=== PATIENT | male | born 1970 | race Caucasian/White ===

== ENCOUNTER 2019-03-05 10:24 | Emergency (ER) | payer BC ==
[~2019-03-05] VITALS: Ht 175.3 cm; Wt 113.4 kg
[~2019-03-05 10:24] MED LIST: ATOR40TA59 PO; LISI-130 PO; RANI300T3 PO
[2019-03-05] MEDS ORDERED: ONDANSETRON PF 4 MG/2 ML VIAL. IV ONE (11:00)
[2019-03-05] MEDS ORDERED: MORPHINE SULFATE 4 MG/ML VIAL. IV ONE (11:00)
[2019-03-05 11:19] LABS: BASO # 0.1 x10^3/uL (0.0-0.2); BASO % 1 % (0-3); EOS # 0.6 x10^3/uL (0.0-0.7); EOS % 6 % (0-3); HEMATOCRIT 44.4 % (39.0-53.0); HEMOGLOBIN 15.3 g/dL (13.0-17.5); LYMPH # 2.6 x10^3/uL (1.0-4.8); LYMPH % 24 % (24-48); MEAN CORPUSCULAR HEMOGLOBIN 31 pg (25-35); MEAN CORPUSCULAR HGB CONC 34 g/dL (31-37); MEAN CORPUSCULAR VOLUME 91 fL (79-100); MONO # 0.9 x10^3/uL (0.0-1.1); MONO % 8 % (0-9); NEUT # 6.9 x10^3uL (1.8-7.7); NEUT % 62 % (31-73); PLATELET COUNT 265 x10^3/uL (140-400); RED BLOOD COUNT 4.87 x10^6/uL (4.30-5.70); WHITE BLOOD COUNT 11.2 x10^3/uL (4.0-11.0)
[2019-03-05 11:29] LABS: CALCIUM 9.3 mg/dL (8.5-10.1); CREATININE 0.9 mg/dL (0.7-1.3); GFR 90.1
[2019-03-05 11:31] LABS: ALBUMIN 3.5 g/dL (3.4-5.0); TOTAL BILIRUBIN 0.3 mg/dL (0.2-1.0); TOTAL PROTEIN 7.1 g/dL (6.4-8.2)
[2019-03-05 11:38] LABS: POTASSIUM 4.1 mmol/L (3.5-5.1)
[2019-03-05 11:44] LABS: BILIRUBIN,URINE NEGATIVE (NEG); CLARITY,URINE CLEAR; COLOR,URINE YELLOW; NITRITE,URINE NEGATIVE (NEG); PROTEIN,URINE NEGATIVE (NEG-TRACE); UROBILINOGEN,URINE 0.2 mg/dL (0.2 mg/dL)
[2019-03-05 11:45] LABS: BACTERIA,URINE 0 /HPF (0-FEW); RBC,URINE 0 /HPF (0-2); SQUAMOUS EPITHELIAL CELL,UR FEW /LPF; WBC,URINE 0 /HPF (0-4)
--- NOTE | 2019-03-05 11:52 | RAD ---
CHEST AP ONLY History: Right lower chest pain.. Comparison with 07/09/2016. The cardiac silhouette is widened, may be slightly greater than on the prior study. No evidence of pneumothorax. No pleural effusion. No evidence of an infiltrate. Bones appear intact. IMPRESSION: Widening of the cardiac silhouette may be slightly greater, compatible with cardiomegaly or pericardial effusion. No consolidating infiltrate. Electronically signed by: Richard Dawkins MD (03/05/2019 11:49 AM) [facility]
--- NOTE | 2019-03-05 12:04 | PHYS DOC ---
Past Medical History Past Medical History: Hypertension, Other Additional Past Medical Histor: HIATAL HERNIA Past Surgical History: Other Additional Past Surgical Histo: Lypoma removal (shoulder),knee,L SHOULDER,DENTAL Additional Information: 1.5 PPD Alcohol Use: Occasionally Additional Information: PATIENT REPORTS DRINKS ALCOHOL EVERY 2 TO 3 DAYS. Drug Use: None Adult General Chief Complaint Chief Complaint: ABDOMINAL PAIN HPI HPI Patient is a 48 year old known presents with right periumbilical pain described as dull. Pain is been continuous for the past 24 hours with sharp components worse with breathing and coughing. Patient has history of abdominal wall strain ventral hernia. Patient's at work this morning when symptoms worsened. Currently rated moderate to severe. States symptoms are different. No nausea vomiting, fever chills or sweats. No flank pain, urinary frequency urgency hematuria or history of kidney stones. No prior abdominal surgeries. [] Review of Systems Review of Systems ROS as per HPI. All other systems were reviewed and found to be within normal limits, except as documented in this note. Current Medications Current Medications Current Medications Medications (Trade) Dose Ordered Sig/Vickie Start Time Stop Time Status Last Admin Dose Admin Info (CONTRAST GIVEN -- Rx MONITORING) 1 each PRN DAILY PRN 03/05/19 12:30 03/07/19 12:29 Iohexol (Omnipaque 300 Mg/ml) 75 ml 1X ONCE 03/05/19 12:30 03/05/19 12:31 DC 03/05/19 12:30 75 ML Morphine Sulfate (Morphine Sulfate) 4 mg 1X ONCE 03/05/19 11:00 03/05/19 11:01 DC 03/05/19 11:18 4 MG Ondansetron HCl (Zofran) 4 mg 1X ONCE 03/05/19 11:00 03/05/19 11:01 DC 03/05/19 11:18 4 MG Allergies Allergies Allergies Coded Allergies Type Severity Reaction Last Updated Verified No Known Drug Allergies 11/25/14 No Physical Exam Physical Exam Constitutional: Well developed, well nourished, no acute distress, non-toxic appearance. [] HENT: Normocephalic, atraumatic, bilateral external ears normal, oropharynx moist, no oral exudates, nose normal. [] Eyes: PERRLA, EOMI, conjunctiva normal, no discharge. [] Neck: Normal range of motion, no tenderness, supple, no stridor. [] Cardiovascular:Heart rate regular rhythm, no murmur [] Lungs & Thorax: Bilateral breath sounds clear to auscultation [] Abdomen: Bowel sounds normal, soft, obesity, focal right periumbilical without palpable hernia. [] Skin: Warm, dry, no erythema. [] Back: No tenderness. [] Extremities: No tenderness, no cyanosis, no clubbing, ROM intact, no edema. [] Neurologic: Alert and oriented X 3, normal motor function, normal sensory function, no focal deficits noted. [] Psychologic: Affect normal, judgement normal, mood normal. [] Current Patient Data Vital Signs Vital Signs Date Time Temp Pulse Resp B/P (MAP) Pulse Ox O2 Delivery O2 Flow Rate FiO2 03/05/19 12:36 173/78 (109) 03/05/19 12:07 84 24 94 Room Air 03/05/19 10:29 97.9 97.9 Lab Values Laboratory Tests Test 03/05/19 10:54 03/05/19 10:56 White Blood Count 11.2 x10^3/uL (4.0-11.0) H Red Blood Count 4.87 x10^6/uL (4.30-5.70) Hemoglobin 15.3 g/dL (13.0-17.5) Hematocrit 44.4 % (39.0-53.0) Mean Corpuscular Volume 91 fL (79-100) Mean Corpuscular Hemoglobin 31 pg (25-35) Mean Corpuscular Hemoglobin Concent 34 g/dL (31-37) Red Cell Distribution Width 13.0 % (11.5-14.5) Platelet Count 265 x10^3/uL (140-400) Neutrophils (%) (Auto) 62 % (31-73) Lymphocytes (%) (Auto) 24 % (24-48) Monocytes (%) (Auto) 8 % (0-9) Eosinophils (%) (Auto) 6 % (0-3) H Basophils (%) (Auto) 1 % (0-3) Neutrophils # (Auto) 6.9 x10^3uL (1.8-7.7) Lymphocytes # (Auto) 2.6 x10^3/uL (1.0-4.8) Monocytes # (Auto) 0.9 x10^3/uL (0.0-1.1) Eosinophils # (Auto) 0.6 x10^3/uL (0.0-0.7) Basophils # (Auto) 0.1 x10^3/uL (0.0-0.2) Sodium Level 140 mmol/L (136-145) Potassium Level 4.1 mmol/L (3.5-5.1) Chloride Level 103 mmol/L (98-107) Carbon Dioxide Level 27 mmol/L (21-32) Anion Gap 10 (6-14) Blood Urea Nitrogen 13 mg/dL (8-26) Creatinine 0.9 mg/dL (0.7-1.3) Estimated GFR (Cockcroft-Gault) 90.1 BUN/Creatinine Ratio 14 (6-20) Glucose Level 111 mg/dL (70-99) H Calcium Level 9.3 mg/dL (8.5-10.1) Total Bilirubin 0.3 mg/dL (0.2-1.0) Aspartate Amino Transferase (AST) 24 U/L (15-37) Alanine Aminotransferase (ALT) 31 U/L (16-63) Alkaline Phosphatase 77 U/L (46-116) Total Protein 7.1 g/dL (6.4-8.2) Albumin 3.5 g/dL (3.4-5.0) Albumin/Globulin Ratio 1.0 (1.0-1.7) Lipase 176 U/L (73-393) Urine Collection Type Unknown Urine Color Yellow Urine Clarity Clear Urine pH 7.0 Urine Specific Sheldon 1.020 Urine Protein Negative mg/dL (NEG-TRACE) Urine Glucose (UA) Negative mg/dL (NEG) Urine Ketones (Stick) Negative mg/dL (NEG) Urine Blood Negative (NEG) Urine Nitrite Negative (NEG) Urine Bilirubin Negative (NEG) Urine Urobilinogen Dipstick 0.2 mg/dL (0.2 mg/dL) Urine Leukocyte Esterase Negative (NEG) Urine RBC 0 /HPF (0-2) Urine WBC 0 /HPF (0-4) Urine Squamous Epithelial Cells Few /LPF Urine Bacteria 0 /HPF (0-FEW) Laboratory Tests 03/05/19 10:54 Laboratory Tests 03/05/19 10:54 EKG EKG [ekg: Reviewed] Radiology/Procedures Radiology/Procedures [CT abdomen pelvis: No acute findings per radiology] Course & Med Decision Making Course & Med Decision Making Pertinent Labs and Imaging studies reviewed. (See chart for details) [Pain addressed and improved. No acute findings on CT. Packed abdominal muscle wall strain. Recommend continued supportive care of allergies, smoker's cough and PCP follow-up. Return precautions reviewed.] Allan Disclaimer Dragon Disclaimer This electronic medical record was generated, in whole or in part, using a voice recognition dictation system. Departure Departure Impression: Primary Impression: Abdominal wall pain Disposition: HOME, SELF-CARE Condition: GOOD Referrals: IDALIA SAGASTUME MD (PCP) Patient Instructions: Abdominal Pain (Nonspecific) Additional Instructions: You were evaluated in the emergency department for abdominal wall pain. Lab and imaging was performed. Although the exact cause of your symptoms have been determined, your symptoms are related to inflamed lymph nodes abdomen due to recent respiratory tract this or abdominal wall strain from coughing. Please take ibuprofen for pain and hydrocodone as needed for additional relief. Please follow-up with your PCP in one week or reevaluation and to review CT results. Return to the ED if new or worsening symptoms. Scripts Hydrocodone Bit/Acetaminophen (HYDROCODONE-APAP 5-325 ) 1 Tab Tablet 1 TAB PO PRN Q6HRS PRN for PAIN, #10 TAB 0 Refills Prov: TOMMIE RUFFIN DO 03/05/19 TOMMIE RUFFIN DO Mar 05, 2019 12:04
[2019-03-05] MEDS ORDERED: CONTRAST GIVEN. MC PRN (12:30)
[2019-03-05] MEDS ORDERED: IOHEXOL 300 MG/ML 100ML VIAL. IV ONE (12:30)
--- NOTE | 2019-03-05 12:52 | RAD ---
CT ABD PELV W/ IV CONTRST ONLY Indication: Right periumbilical pain. Pain for 24 hours. Exposure: One or more of the following individualized dose reduction techniques were utilized for this examination: 1. Automated exposure control 2. Adjustment of the mA and/or kV according to patient size 3. Use of iterative reconstruction technique. Technique: Intravenous contrast was given. No oral contrast per request. No prior studies for comparison. Lung bases appear clear. Liver is hypodense compatible with steatosis. Liver is mildly enlarged. Spleen is enlarged, 15.5 cm. Pancreas unremarkable. No evidence of adrenal mass. Kidneys demonstrate symmetric enhancement without mass or hydronephrosis. No calcified gallstone. No aortic aneurysm. Small left para-aortic lymph node measures 1 cm short axis. No other significant lymph node enlargement is seen. No significant small bowel distention. Question mild rectal wall thickening but no adjacent stranding in the fat. No evidence of acute colitis. Appendix appears normal. No evidence of ascites or pneumoperitoneum. No evidence of pelvic mass. Urinary bladder appears unremarkable. Mild degenerative changes of the spine. No aggressive bone destruction. IMPRESSION: 1. Mild hepatosplenomegaly. Hepatic steatosis. 2. Solitary mildly enlarged para-aortic lymph node, nonspecific. 3. Mild apparent rectal wall thickening. No stranding in the surrounding fat, however, significance questionable. Correlate clinically. Electronically signed by: Richard Dawkins MD (03/05/2019 12:49 PM) [facility]
[2019-03-05] MEDS ORDERED: HYDR-2761 PO (14:07)
[2019-03-05 14:14] VITALS: BP 153/74
== END 2019-03-05 14:20 | disposition home or self-care (01) ==
LOC: ER 10:24
DX: R10.33 Periumbilical pain (principal); E65 Localized adiposity; F17.200 Nicotine dependence, unspecified, uncomplicated; I10 Essential (primary) hypertension
CPT/HCPCS: 36415; 71045; 74177; 80053; 81001; 83690; 85025; 96374; 96375; 99285; J2270; J2405; Q9967

== ENCOUNTER 2020-06-11 19:48 | Inpatient (IN) | payer BC ==
[~2020-06-11] VITALS: Ht 175.3 cm; Wt 112.4 kg
[~2020-06-11 19:48] MED LIST changes: +HYDR-2761 PO
[2020-06-11] MEDS ORDERED: ASPIRIN 325 MG TABLET PO ONE (20:30)
[2020-06-11] MEDS ORDERED: NITROGLYCERIN SUBLINGUAL 0.4 MG BOTTLE OF 25. SL PRN ×2 (20:30→21:30)
[2020-06-11] MEDS ORDERED: MORPHINE SULFATE 4 MG/ML VIAL. IV/SQ PRN (20:30)
[2020-06-11] MEDS ORDERED: LIDO:MAALOX 1:1 20 ML SINGLE DOSE. SWSW ONE (20:30)
[2020-06-11 20:31] LABS: BASO # 0.1 x10^3/uL (0.0-0.2); BASO % 1 % (0-3); EOS # 0.7 x10^3/uL (0.0-0.7); EOS % 7 % (0-3); HEMATOCRIT 43.8 % (39.0-53.0); HEMOGLOBIN 14.8 g/dL (13.0-17.5); LYMPH # 3.2 x10^3/uL (1.0-4.8); LYMPH % 29 % (24-48); MEAN CORPUSCULAR HEMOGLOBIN 30 pg (25-35); MEAN CORPUSCULAR HGB CONC 34 g/dL (31-37); MEAN CORPUSCULAR VOLUME 90 fL (79-100); MONO # 0.9 x10^3/uL (0.0-1.1); MONO % 9 % (0-9); NEUT # 6.2 x10^3/uL (1.8-7.7); NEUT % 56 % (31-73); PLATELET COUNT 296 x10^3/uL (140-400); RED BLOOD COUNT 4.86 x10^6/uL (4.30-5.70); RED CELL DISTRIBUTION WIDTH 13.7 % (11.5-14.5); WHITE BLOOD COUNT 11.1 x10^3/uL (4.0-11.0)
[2020-06-11 20:42] LABS: CALCIUM 8.8 mg/dL (8.5-10.1); GFR 79.4; POTASSIUM 4.2 mmol/L (3.5-5.1)
[2020-06-11 20:49] LABS: ALBUMIN 3.6 g/dL (3.4-5.0); ALBUMIN/GLOBULIN RATIO 1.2 (1.0-1.7); MAGNESIUM 2.1 mg/dL (1.8-2.4); TOTAL BILIRUBIN 0.2 mg/dL (0.2-1.0); TOTAL PROTEIN 6.6 g/dL (6.4-8.2)
--- NOTE | 2020-06-11 20:54 | PHYS DOC ---
Past Medical History Past Medical History: GERD, Hypertension, Other Additional Past Medical Histor: HIATAL HERNIA (YOUSUF ACOSTA APRN) Past Surgical History: Other Additional Past Surgical Histo: Lypoma removal (shoulder),knee,L SHOULDER,DENTAL (YOUSUF ACOSTA APRN) Smoking Status: Current Every Day Smoker Alcohol Use: Occasionally Drug Use: None (YOUSUF ACOSTA APRN) General Adult EDM: Chief Complaint: CHEST PAIN HPI: HPI: Patient is a 49 year old male with history of hypertension, acid reflux, current smoker who presents to the ED today complaining of 5 out of 10 pressure- like chest pain that began 2 hours prior to coming to the ED. Patient states he thought it was his acid reflux and took some acid reflux medication with no relief. Patient states at some point the pain radiated to his left jaw. Patient denies anything specifically exacerbating or relieving the pain. (YOUSUF ACOSTA APRN) Review of Systems: Review of Systems: Constitutional: Denies fever or chills. [] Eyes: Denies change in visual acuity. [] HENT: Denies nasal congestion or sore throat. [] Respiratory: Denies cough or shortness of breath. [] Cardiovascular: Reports chest pain GI: Denies abdominal pain, nausea, vomiting, bloody stools or diarrhea. [] : Denies dysuria. [] Musculoskeletal: Denies back pain or joint pain. [] Integument: Denies rash. [] Psychiatric: Denies depression or anxiety. [] (YOUSUF ACOSTA APRN) Heart Score: HEART Score for Chest Pain: HEART Score for Chest Pain Response (Comments) Value History Moderately Suspicious 1 ECG Normal 0 Age >45 - < 65 1 Risk Factors 1 or 2 Risk Factors 1 Troponin >1-<3x Normal Limit 1 Total 4 Risk Factors: Risk Factors: DM, Current or recent (<one month) smoker, HTN, HLP, family history of CAD, obesity. Risk Scores: Score 0 - 3: 2.5% MACE over next 6 weeks - Discharge Home Score 4 - 6: 20.3% MACE over next 6 weeks - Admit for Clinical Observation Score 7 - 10: 72.7% MACE over next 6 weeks - Early Invasive Strategies (YOUSUF ACOSTA APRN) Current Medications: Current Medications Medications (Trade) Dose Ordered Sig/Vickie Start Time Stop Time Status Last Admin Dose Admin Aspirin (Jessica Aspirin) 325 mg 1X ONCE 06/11/20 20:30 06/11/20 20:31 DC 06/11/20 20:32 325 MG Morphine Sulfate (Morphine Sulfate) 4 mg PRN Q15MIN PRN 06/11/20 20:30 06/12/20 20:29 Multi-Ingredient Mouthwash/Gargle (Gi Cocktail) 20 ml 1X ONCE 06/11/20 20:30 06/11/20 20:31 DC 06/11/20 20:32 20 ML Nitroglycerin (Nitrostat) 0.4 mg PRN Q5MIN PRN 06/11/20 20:30 06/12/20 20:29 (YOUSUF ACOSTA APRN) Allergies: Allergies: Allergies Coded Allergies Type Severity Reaction Last Updated Verified No Known Drug Allergies 11/25/14 No (YOUSUF ACOSTA CARROTING MACHINE OFFBEARER) Physical Exam: PE: Constitutional: Well developed, well nourished, no acute distress, non-toxic appearance. [] HENT: Normocephalic, atraumatic, bilateral external ears normal, oropharynx moist, no oral exudates, nose normal. [] Eyes: PERRLA, EOMI, conjunctiva normal, no discharge. [] Neck: Normal range of motion, no tenderness, supple, no stridor. [] Cardiovascular:Heart rate regular rhythm, no murmur [] Lungs & Thorax: Bilateral breath sounds clear to auscultation [] Abdomen: Bowel sounds normal, soft, no tenderness, no masses, no pulsatile masses. [] Skin: Warm, dry, no erythema, no rash. [] Back: No tenderness, no CVA tenderness. [] Extremities: No tenderness, no cyanosis, no clubbing, ROM intact, no edema. [] Neurologic: Alert and oriented X 3, normal motor function, normal sensory function, no focal deficits noted. [] Psychologic: Affect normal, judgement normal, mood normal. [] (YOUSUF ACOSTA CARROTING MACHINE OFFBEARER) Current Patient Data: Labs: Laboratory Tests Test 06/11/20 20:20 White Blood Count 11.1 x10^3/uL (4.0-11.0) H Red Blood Count 4.86 x10^6/uL (4.30-5.70) Hemoglobin 14.8 g/dL (13.0-17.5) Hematocrit 43.8 % (39.0-53.0) Mean Corpuscular Volume 90 fL (79-100) Mean Corpuscular Hemoglobin 30 pg (25-35) Mean Corpuscular Hemoglobin Concent 34 g/dL (31-37) Red Cell Distribution Width 13.7 % (11.5-14.5) Platelet Count 296 x10^3/uL (140-400) Neutrophils (%) (Auto) 56 % (31-73) Lymphocytes (%) (Auto) 29 % (24-48) Monocytes (%) (Auto) 9 % (0-9) Eosinophils (%) (Auto) 7 % (0-3) H Basophils (%) (Auto) 1 % (0-3) Neutrophils # (Auto) 6.2 x10^3/uL (1.8-7.7) Lymphocytes # (Auto) 3.2 x10^3/uL (1.0-4.8) Monocytes # (Auto) 0.9 x10^3/uL (0.0-1.1) Eosinophils # (Auto) 0.7 x10^3/uL (0.0-0.7) Basophils # (Auto) 0.1 x10^3/uL (0.0-0.2) Sodium Level 140 mmol/L (136-145) Potassium Level 4.2 mmol/L (3.5-5.1) Chloride Level 103 mmol/L (98-107) Carbon Dioxide Level 28 mmol/L (21-32) Anion Gap 9 (6-14) Blood Urea Nitrogen 16 mg/dL (8-26) Creatinine 1.0 mg/dL (0.7-1.3) Estimated GFR (Cockcroft-Gault) 79.4 BUN/Creatinine Ratio 16 (6-20) Glucose Level 115 mg/dL (70-99) H Calcium Level 8.8 mg/dL (8.5-10.1) Magnesium Level 2.1 mg/dL (1.8-2.4) Total Bilirubin 0.2 mg/dL (0.2-1.0) Aspartate Amino Transferase (AST) 24 U/L (15-37) Alanine Aminotransferase (ALT) 33 U/L (16-63) Alkaline Phosphatase 91 U/L (46-116) Total Protein 6.6 g/dL (6.4-8.2) Albumin 3.6 g/dL (3.4-5.0) Albumin/Globulin Ratio 1.2 (1.0-1.7) Lipase 178 U/L (73-393) Laboratory Tests 06/11/20 20:20 Laboratory Tests 06/11/20 20:20 Vital Signs: Vital Signs Date Time Temp Pulse Resp B/P (MAP) Pulse Ox O2 Delivery O2 Flow Rate FiO2 06/11/20 20:08 98.5 83 20 141/72 (95) 96 Room Air 98.5 (YOUSUF ACOSTA APRN) EKG: EK interpreted by Dr. Richardson sinus rhythm HR 79 no STEMI[] (YOUSUF ACOSTA APRN) Radiology/Procedures: Radiology/Procedures: []PROCEDURE: PORTABLE CHEST 1V Single view chest dated 06/11/2020. Comparison made to 03/05/2019. CLINICAL INDICATION: Chest pain. FINDINGS: Single upright portable exam performed. Heart size is mildly enlarged. Lungs are somewhat hypoinflated but otherwise clear. No consolidation or pleural effusion. There are some prominent linear perihilar markings, unchanged. No pleural effusion or. IMPRESSION: No acute radiographic abnormality. Stable findings compared to 03/05/2019. Electronically signed by: Richard Causey MD (06/11/2020 9:14 PM) [facility] [place] DICTATED and SIGNED BY: RICHARD CAUSEY MD DATE: 06/11/202113 (YOUSUF ACOSTA APRN) Course & Med Decision Making: Course & Med Decision Making Pertinent Labs and Imaging studies reviewed. (See chart for details) This is a 49-year-old male patient presenting to the ED today with substernal chest pain that began 2 hours prior to coming to the ED. EKG is negative. Troponin 0.313, CBC, CMP negative for any acute findings. Spoke with - he requested heparin Lovenox. Lovenox was given to patient. Spoke with Dr. Almazan who accepted patient for admission Talked to patient to consider smoking cessation. (YOUSUF ACOSTA APRN) Dragon Disclaimer: Dragon Disclaimer: This electronic medical record was generated, in whole or in part, using a voice recognition dictation system. (YOUSUF ACOSTA APRN) Departure Departure Impression: Primary Impression: Chest pain Qualified Codes: R07.9 - Chest pain, unspecified Additional Impressions: NSTEMI, initial episode of care Smoking addiction Disposition: ADMITTED INPATIENT Referrals: IDALIA SAGASTUME MD (PCP) Justicifation of Admission Dx: Justifications for Admission: Justification of Admission Dx: Yes [place]: Acute NSTEMI (YOUSUF ACOSTA APRN) Attending Signature Attending Signature I have reviewed the PA/STENCIL PRINTER's note and plan of care. I was available for consultation as needed during the patient's visit in the emergency department. I agree with the clinical impression, plan, and disposition. (RICHARD RICHARDSON DO) YOUSUF ACOSTA APRN Jun 11, 2020 20:54 RICHARD RICHARDSON DO Jun 12, 2020 01:58
[2020-06-11 21:04] LABS: PROTHROMBIN TIME PATIENT 12.1 SEC (11.7-14.0)
[2020-06-11 21:07] LABS: D-DIMER < 0.27 ug/mlFEU (0.00-0.50)
[2020-06-11] MEDS ORDERED: ANTI-COAG MONITOR BY PHARMACY. MC PRN (21:15)
--- NOTE | 2020-06-11 21:17 | RAD ---
Single view chest dated 06/11/2020. Comparison made to 03/05/2019. CLINICAL INDICATION: Chest pain. FINDINGS: Single upright portable exam performed. Heart size is mildly enlarged. Lungs are somewhat hypoinflated but otherwise clear. No consolidation or pleural effusion. There are some prominent linear perihilar markings, unchanged. No pleural effusion or. IMPRESSION: No acute radiographic abnormality. Stable findings compared to 03/05/2019. Electronically signed by: Richard Causey MD (06/11/2020 9:14 PM) JM
[2020-06-11] MEDS ORDERED: ONDANSETRON PF 4 MG/2 ML VIAL. IV PRN (21:30)
[2020-06-11] MEDS ORDERED: MORPHINE SULFATE 4 MG/ML VIAL. IV PRN (21:30)
[2020-06-11 22:30] VITALS: BP 143/79
[2020-06-11] MEDS ORDERED: NICOTINE 14MG PATCH. TD PRN (23:15)
[2020-06-11] MEDS ORDERED: IBUP-1060 PO (23:37)
[2020-06-12] VITALS (7 sets, daily range): BP systolic 124–179; BP diastolic 48–78
[2020-06-12 00:30] LABS: BASO # 0.1 x10^3/uL (0.0-0.2); BASO % 1 % (0-3); EOS # 0.8 x10^3/uL (0.0-0.7); EOS % 7 % (0-3); HEMATOCRIT 42.4 % (39.0-53.0); HEMOGLOBIN 14.6 g/dL (13.0-17.5); LYMPH # 3.6 x10^3/uL (1.0-4.8); LYMPH % 34 % (24-48); MEAN CORPUSCULAR HEMOGLOBIN 31 pg (25-35); MEAN CORPUSCULAR HGB CONC 35 g/dL (31-37); MEAN CORPUSCULAR VOLUME 90 fL (79-100); MONO # 0.7 x10^3/uL (0.0-1.1); MONO % 7 % (0-9); NEUT # 5.3 x10^3/uL (1.8-7.7); NEUT % 51 % (31-73); PLATELET COUNT 271 x10^3/uL (140-400); RED CELL DISTRIBUTION WIDTH 13.5 % (11.5-14.5); WHITE BLOOD COUNT 10.4 x10^3/uL (4.0-11.0)
[2020-06-12 00:45] LABS: ALBUMIN 3.4 g/dL (3.4-5.0); ALBUMIN/GLOBULIN RATIO 1.1 (1.0-1.7); CALCIUM 8.7 mg/dL (8.5-10.1); GFR 79.4; POTASSIUM 4.1 mmol/L (3.5-5.1); TOTAL BILIRUBIN 0.2 mg/dL (0.2-1.0); TOTAL PROTEIN 6.4 g/dL (6.4-8.2)
--- NOTE | 2020-06-12 01:03 | NUR ---
Spoke with Dr Yanez regarding elevated troponin of 6.135. Order received for heparin drip to begin at 0600 and pt to remain NPO. Will continue with plan of care.
[2020-06-12] MEDS ORDERED: HEPARIN for IV BOLUS 10,000 UNIT/10 ML VIAL. IV ONE (06:00)
[2020-06-12] MEDS ORDERED: HEPARIN 25,000UTS/250ML PREMIX 250 ML IV PRN (06:00)
[2020-06-12] MEDS ORDERED: HEPARIN for IV BOLUS 10,000 UNIT/10 ML VIAL. IV PRN (06:00)
--- NOTE | 2020-06-12 07:47 | PDOC1 ---
History and Physical Date of Admission Date of Admission DATE: 06/12/20 TIME: 07:44 Identification/Chief Complaint Chief Complaint Chest pain Source Source: Patient History of Present Illness History of Present Illness Mr Lepe is a 49 year old male with history of hypertension, acid reflux, current smoker who presents to the ED today complaining of 5 out of 10 pressure- like chest pain that began 2 hours prior to coming to the ED. Patient states he thought it was his acid reflux and took some acid reflux medication with no relief. Patient states at some point the pain radiated to his left jaw. Patient denies anything specifically exacerbating or relieving the pain. Chest x-ray with no acute abnormality. EKG normal sinus rhythm rate of 79 bpm. Labs significant for WBC 11.1, Hb 14.8, platelets 296, INR 0.9, d-dimer 0, BNP 47, lipase 178, NA 140, K4.2, BUN 16, CR 1, glucose 115, THS 1.55. Initial troponin 0 0.313, 6-hour troponin 0.135, now 10.098 Past Medical History Cardiovascular: HTN GI: GERD Past Surgical History Past Surgical History: Other ([place] teeth) Family History Family History: Coronary Artery Disease, High Cholestrol, Hypertension Social History Smoke: 1 pack per day ALCOHOL: rare Drugs: None Current Problem List Problem List Problems Medical Problems: (1) NSTEMI, initial episode of care Status: Acute (2) Smoking addiction Status: Acute Current Medications Current Medications Current Medications Aspirin (Jessica Aspirin) 325 mg 1X ONCE PO Last administered on 06/11/20at 20:32; Start 06/11/20 at 20:30; Stop 06/11/20 at 20:31; Status DC Nitroglycerin (Nitrostat) 0.4 mg PRN Q5MIN PRN SL CP RATING > 1/10 Last administered on 06/11/20at 20:55; Start 06/11/20 at 20:30; Stop 06/11/20 at 21:22; Status DC Morphine Sulfate (Morphine Sulfate) 4 mg PRN Q15MIN PRN IV/SQ PAIN GREATER THAN 3/10 Last administered on 06/11/20at 20:56; Start 06/11/20 at 20:30; Stop 06/12/20 at 20:29 Multi-Ingredient Mouthwash/Gargle (Gi Cocktail) 20 ml 1X ONCE SWSW Last administered on 06/11/20at 20:32; Start 06/11/20 at 20:30; Stop 06/11/20 at 20:31; Status DC Enoxaparin Sodium (Lovenox Per Pharmacy Treatment Dosing) 1 each PRN DAILY PRN MC SEE COMMENTS Last administered on 06/12/20at 00:21; Start 06/11/20 at 21:15; Stop 06/12/20 at 01:18; Status DC Enoxaparin Sodium (Lovenox 100mg Syringe) 100 mg Q12HR SQ Last administered on 06/11/20at 21:58; Start 06/11/20 at 21:30; Stop 06/12/20 at 00:18; Status DC Info (Anti-Coagulation Monitoring By Pharmacy) 1 each PRN DAILY PRN MC SEE COMMENTS Last administered on 06/12/20at 00:22; Start 06/11/20 at 21:15 Ondansetron HCl (Zofran) 4 mg PRN Q8HRS PRN IV NAUSEA/VOMITING 1ST CHOICE; Start 06/11/20 at 21:30; Stop 06/12/20 at 21:29 Morphine Sulfate (Morphine Sulfate) 4 mg PRN Q2HR PRN IV SEVERE PAIN 7-10; Start 06/11/20 at 21:30; Stop 06/12/20 at 21:29 Nitroglycerin (Nitrostat) 0.4 mg PRN Q5MIN PRN SL CHEST PAIN; Start 06/11/20 at 21:30; Stop 06/12/20 at 21:29 Nicotine (Nicoderm Cq 14mg) 1 patch PRN DAILY PRN TD SMOKING CESSATION; Start 06/11/20 at 23:15 Enoxaparin Sodium (Lovenox 150mg Syringe) 130 mg Q12H SQ ; Start 06/12/20 at 09:00; Stop 06/12/20 at 01:18; Status DC Heparin Sodium (Porcine) (Heparin Sodium) 2,000 unit 1X ONCE IV Last administered on 06/12/20at 05:34; Start 06/12/20 at 06:00; Stop 06/12/20 at 06:01; Status DC Heparin Sodium/ Dextrose 250 ml @ 0 mls/hr CONT PRN IV PER PROTOCOL Last administered on 06/12/20at 05:31; Start 06/12/20 at 06:00 Heparin Sodium (Porcine) (Heparin Sodium) 3,350 unit PRN Q6HRS PRN IV FOR UFH LEVEL LESS THAN 0.2; Start 06/12/20 at 06:00 Active Scripts Active Zantac (Ranitidine Hcl) 300 Mg Tablet 1 Tab PO QHS Reported Ibuprofen 800 Mg Tablet 800 Mg PO PRN BID PRN Lisinopril 40 Mg Tablet 40 Mg PO DAILY Allergies Allergies: Coded Allergies: No Known Drug Allergies (Unverified , 11/25/14) ROS General: YES: Fatigue, Malaise; No: Chills, Night Sweats, Appetite, Other PSYCHOLOGICAL ROS: No: Anxiety, Behavioral Disorder, Concentration difficultie, Decreased libido, Depression, Disorientation, Hallucinations, Hostility, Irritablity, Memory difficulties, Mood Swings, Obsessive thoughts, Physical abuse, Sexual abuse, Sleep disturbances, Suicidal ideation, Other Eyes: No Blurry vision, No Decreased vision, No Double vision, No Dry eyes, No Excessive tearing, No Eye Pain, No Itchy Eyes, No Loss of vision, No Photophobia, No Scotomata, No Uses contacts, No Uses glasses, No Other HEENT: No: Heacaches, Visual Changes, Hearing change, Nasal congestion, Nasal discharge, Oral lesions, Sinus pain, Sore Throat, Epistaxis, Sneezing, Snoring, Tinnitus, Vertigo, Vocal changes, Other ALLERGY AND IMMUNOLOGY: No: Hives, Insect Bite Sensitivity, Itchy/Watery Eyes, Nasal Congestion, Post Nasal Drip, Seasonal Allergies, Other Hematological and Lymphatic: No: Bleeding Problems, Blood Clots, Blood Transfusions, Brusing, Night Sweats, Pallor, Swollen Lymph Nodes, Other ENDOCRINE: No: Breast Changes, Galactorrhea, Hair Pattern Changes, Hot Flashes, Malaise/lethargy, Mood Swings, Palpitations, Polydipsia/polyuria, Skin Changes, Temperature Intolerance, Unexpected Weight Changes, Other Breast: No New/Changing Breast Lumps, No Nipple changes, No Nipple discharge, No Other Respiratory: YES: Cough; No: Hemoptysis, Orthopnea, Pleuritic Pain, Shortness of breath, SOB with excertion, Sputum Changes, Stridor, Tachypnea, Wheezing, Other Cardiovascular: yes Chest Pain; No Palpitations, No Orthopnea, No Paroxysmal Noc. Dyspnea, No Edema, No Lt Headedness, No Other Gastrointestinal: Yes Nausea; No Vomiting, No Abdominal Pain, No Diarrhea, No Constipation, No Melena, No Hematochezia, No Other Genitourinary: No Dysuria, No Frequency, No Incontinence, No Hematuria, No Retention, No Discharge, No Urgency, No Pain, No Flank Pain, No Other, No , No , No , No , No , No , No Musculoskeletal: No Gait Disturbance, No Joint Pain, No Joint Stiffness, No Joint Swelling, No Muscle Pain, No Muscular Weakness, No Pain In:, No Swelling In:, No Other Neurological: No Behavorial Changes, No Bowel/Bladder ControlChng, No Confusion, No Dizziness, No Gait Disturbance, No Headaches, No Impaired Coord/balance, No Memory Loss, No Numbness/Tingling, No Seizures, No Speech Problems, No Tremors, No Visual Changes, No Weakness, No Other Skin: No Dry Skin, No Eczema, No Hair Changes, No Lumps, No Mole Changes, No Mottling, No Nail Changes, No Pruritus, No Rash, No Skin Lesion Changes, No Other, No Acne Physical Exam General: Alert, Oriented X3, Cooperative, mild distress HEENT: Atraumatic, PERRLA, EOMI, Mucous membr. moist/pink Lungs: Clear to auscultation, Normal air movement Heart: S1S2, RRR, no thrills, no rubs, no gallops, no murmurs Abdomen: Normal bowel sounds, Soft, No tenderness, No hepatosplenomegaly, No masses Rectal Exam: not examined Extremities: No clubbing, No cyanosis, No edema, Normal pulses, No tenderness/swelling Skin: No rashes, No breakdown, No significant lesion Neuro: Normal gait, Normal speech, Strength at 5/5 X4 ext, Normal tone, Sensation intact, Cranial nerves 3-12 NL, Reflexes 2+ Psych/Mental Status: Mental status NL, Mood NL Vitals Vitals Vital Signs Date Time Temp Pulse Resp B/P (MAP) Pulse Ox O2 Delivery O2 Flow Rate FiO2 06/12/20 03:30 97.4 71 18 139/61 (87) 96 Room Air 97.4 Labs Labs Laboratory Tests Test 06/11/20 20:20 06/12/20 00:10 06/12/20 03:10 White Blood Count 11.1 x10^3/uL (4.0-11.0) 10.4 x10^3/uL (4.0-11.0) Red Blood Count 4.86 x10^6/uL (4.30-5.70) 4.70 x10^6/uL (4.30-5.70) Hemoglobin 14.8 g/dL (13.0-17.5) 14.6 g/dL (13.0-17.5) Hematocrit 43.8 % (39.0-53.0) 42.4 % (39.0-53.0) Mean Corpuscular Volume 90 fL (79-100) 90 fL (79-100) Mean Corpuscular Hemoglobin 30 pg (25-35) 31 pg (25-35) Mean Corpuscular Hemoglobin Concent 34 g/dL (31-37) 35 g/dL (31-37) Red Cell Distribution Width 13.7 % (11.5-14.5) 13.5 % (11.5-14.5) Platelet Count 296 x10^3/uL (140-400) 271 x10^3/uL (140-400) Neutrophils (%) (Auto) 56 % (31-73) 51 % (31-73) Lymphocytes (%) (Auto) 29 % (24-48) 34 % (24-48) Monocytes (%) (Auto) 9 % (0-9) 7 % (0-9) Eosinophils (%) (Auto) 7 % (0-3) 7 % (0-3) Basophils (%) (Auto) 1 % (0-3) 1 % (0-3) Neutrophils # (Auto) 6.2 x10^3/uL (1.8-7.7) 5.3 x10^3/uL (1.8-7.7) Lymphocytes # (Auto) 3.2 x10^3/uL (1.0-4.8) 3.6 x10^3/uL (1.0-4.8) Monocytes # (Auto) 0.9 x10^3/uL (0.0-1.1) 0.7 x10^3/uL (0.0-1.1) Eosinophils # (Auto) 0.7 x10^3/uL (0.0-0.7) 0.8 x10^3/uL (0.0-0.7) Basophils # (Auto) 0.1 x10^3/uL (0.0-0.2) 0.1 x10^3/uL (0.0-0.2) Prothrombin Time 12.1 SEC (11.7-14.0) Prothromb Time International Ratio 0.9 (0.8-1.1) D-Dimer (Lina) < 0.27 ug/mlFEU Sodium Level 140 mmol/L (136-145) 140 mmol/L (136-145) Potassium Level 4.2 mmol/L (3.5-5.1) 4.1 mmol/L (3.5-5.1) Chloride Level 103 mmol/L (98-107) 104 mmol/L (98-107) Carbon Dioxide Level 28 mmol/L (21-32) 26 mmol/L (21-32) Anion Gap 9 (6-14) 10 (6-14) Blood Urea Nitrogen 16 mg/dL (8-26) 16 mg/dL (8-26) Creatinine 1.0 mg/dL (0.7-1.3) 1.0 mg/dL (0.7-1.3) Estimated GFR (Cockcroft-Gault) 79.4 79.4 BUN/Creatinine Ratio 16 (6-20) 16 (6-20) Glucose Level 115 mg/dL (70-99) 161 mg/dL (70-99) Calcium Level 8.8 mg/dL (8.5-10.1) 8.7 mg/dL (8.5-10.1) Magnesium Level 2.1 mg/dL (1.8-2.4) Total Bilirubin 0.2 mg/dL (0.2-1.0) 0.2 mg/dL (0.2-1.0) Aspartate Amino Transf (AST/SGOT) 24 U/L (15-37) 41 U/L (15-37) Alanine Aminotransferase (ALT/SGPT) 33 U/L (16-63) 33 U/L (16-63) Alkaline Phosphatase 91 U/L (46-116) 86 U/L (46-116) Troponin I Quantitative 0.313 ng/mL (0.000-0.055) 6.135 ng/mL (0.000-0.055) 10.098 ng/mL (0.000-0.055) NE-Wvh-S-Type Natriuretic Peptide 47 pg/mL (0-124) Total Protein 6.6 g/dL (6.4-8.2) 6.4 g/dL (6.4-8.2) Albumin 3.6 g/dL (3.4-5.0) 3.4 g/dL (3.4-5.0) Albumin/Globulin Ratio 1.2 (1.0-1.7) 1.1 (1.0-1.7) Lipase 178 U/L (73-393) Thyroid Stimulating Hormone (TSH) 1.556 uIU/mL (0.358-3.74) Laboratory Tests Test 06/11/20 20:20 06/12/20 00:10 06/12/20 03:10 White Blood Count 11.1 x10^3/uL (4.0-11.0) 10.4 x10^3/uL (4.0-11.0) Red Blood Count 4.86 x10^6/uL (4.30-5.70) 4.70 x10^6/uL (4.30-5.70) Hemoglobin 14.8 g/dL (13.0-17.5) 14.6 g/dL (13.0-17.5) Hematocrit 43.8 % (39.0-53.0) 42.4 % (39.0-53.0) Mean Corpuscular Volume 90 fL (79-100) 90 fL (79-100) Mean Corpuscular Hemoglobin 30 pg (25-35) 31 pg (25-35) Mean Corpuscular Hemoglobin Concent 34 g/dL (31-37) 35 g/dL (31-37) Red Cell Distribution Width 13.7 % (11.5-14.5) 13.5 % (11.5-14.5) Platelet Count 296 x10^3/uL (140-400) 271 x10^3/uL (140-400) Neutrophils (%) (Auto) 56 % (31-73) 51 % (31-73) Lymphocytes (%) (Auto) 29 % (24-48) 34 % (24-48) Monocytes (%) (Auto) 9 % (0-9) 7 % (0-9) Eosinophils (%) (Auto) 7 % (0-3) 7 % (0-3) Basophils (%) (Auto) 1 % (0-3) 1 % (0-3) Neutrophils # (Auto) 6.2 x10^3/uL (1.8-7.7) 5.3 x10^3/uL (1.8-7.7) Lymphocytes # (Auto) 3.2 x10^3/uL (1.0-4.8) 3.6 x10^3/uL (1.0-4.8) Monocytes # (Auto) 0.9 x10^3/uL (0.0-1.1) 0.7 x10^3/uL (0.0-1.1) Eosinophils # (Auto) 0.7 x10^3/uL (0.0-0.7) 0.8 x10^3/uL (0.0-0.7) Basophils # (Auto) 0.1 x10^3/uL (0.0-0.2) 0.1 x10^3/uL (0.0-0.2) Prothrombin Time 12.1 SEC (11.7-14.0) Prothromb Time International Ratio 0.9 (0.8-1.1) D-Dimer (Lina) < 0.27 ug/mlFEU Sodium Level 140 mmol/L (136-145) 140 mmol/L (136-145) Potassium Level 4.2 mmol/L (3.5-5.1) 4.1 mmol/L (3.5-5.1) Chloride Level 103 mmol/L (98-107) 104 mmol/L (98-107) Carbon Dioxide Level 28 mmol/L (21-32) 26 mmol/L (21-32) Anion Gap 9 (6-14) 10 (6-14) Blood Urea Nitrogen 16 mg/dL (8-26) 16 mg/dL (8-26) Creatinine 1.0 mg/dL (0.7-1.3) 1.0 mg/dL (0.7-1.3) Estimated GFR (Cockcroft-Gault) 79.4 79.4 BUN/Creatinine Ratio 16 (6-20) 16 (6-20) Glucose Level 115 mg/dL (70-99) 161 mg/dL (70-99) Calcium Level 8.8 mg/dL (8.5-10.1) 8.7 mg/dL (8.5-10.1) Magnesium Level 2.1 mg/dL (1.8-2.4) Total Bilirubin 0.2 mg/dL (0.2-1.0) 0.2 mg/dL (0.2-1.0) Aspartate Amino Transf (AST/SGOT) 24 U/L (15-37) 41 U/L (15-37) Alanine Aminotransferase (ALT/SGPT) 33 U/L (16-63) 33 U/L (16-63) Alkaline Phosphatase 91 U/L (46-116) 86 U/L (46-116) Troponin I Quantitative 0.313 ng/mL (0.000-0.055) 6.135 ng/mL (0.000-0.055) 10.098 ng/mL (0.000-0.055) TL-Hpj-Z-Type Natriuretic Peptide 47 pg/mL (0-124) Total Protein 6.6 g/dL (6.4-8.2) 6.4 g/dL (6.4-8.2) Albumin 3.6 g/dL (3.4-5.0) 3.4 g/dL (3.4-5.0) Albumin/Globulin Ratio 1.2 (1.0-1.7) 1.1 (1.0-1.7) Lipase 178 U/L (73-393) Thyroid Stimulating Hormone (TSH) 1.556 uIU/mL (0.358-3.74) Images Images CXR: Single upright portable exam performed. Heart size is mildly enlarged. Lungs are somewhat hypoinflated but otherwise clear. No consolidation or pleural effusion. There are some prominent linear perihilar markings, unchanged. No pleural effusion or. IMPRESSION: No acute radiographic abnormality. Stable findings compared to 03/05/2019. VTE Prophylaxis Ordered VTE Prophylaxis Devices: Yes VTE Pharmacological Prophylaxi: Yes Assessment/Plan Assessment/Plan A/P: NSTEMI - to cardiac geophysical laboratory chief today. Started on lovenox. ASA Hypertension - cont home meds Acid reflux - ppi Current smoker - counseled on cessation Transaminitis - likely fatty liver related FEN - NPO PPX - lovenox FULL CODE Dispo - inpatient for above Justifications for Admission Other Justification RUTH MAYS MD Jun 12, 2020 07:46
--- NOTE | 2020-06-12 08:48 | EKG ---
[facility] [address] [place] [address] Test Date: 2020-06-11 Test Time: 19:58:49 Pat Name: ELIDA BURGESS Department: Room: Gender: M Deposition Operator: : 1970 Requested By: YOUSUF ACOSTA Order Number: [id number] Reading MD: Measurements Intervals [place] Rate: 79 P: 56 MS: 138 QRS: 64 QRSD: 88 T: 18 QT: 362 QTc: 421 Interpretive Statements SINUS RHYTHM INCOMPLETE RIGHT BUNDLE BRANCH BLOCK NO SPECIFIC ECG ABNORMALITIES RI6.02 No previous ECG available for comparison
[2020-06-12] MEDS ORDERED: LIDOCAINE 1% PF 2 ML VIAL. ONE (09:55)
[2020-06-12] MEDS ORDERED: IOHEXOL 300 MG/ML 100ML VIAL. ONE (09:55)
[2020-06-12] MEDS ORDERED: fentaNYL PF VIAL 100 MCG/2 ML VIAL ONE (10:03)
[2020-06-12] MEDS ORDERED: HEPARIN for IV BOLUS 10,000 UNIT/10 ML VIAL. ONE (10:04)
[2020-06-12] MEDS ORDERED: NITROGLYCERIN 200 MCG/2 ML SYRINGE FOR CATH/VASC LAB. ONE (10:04)
[2020-06-12] MEDS ORDERED: MIDAZOLAM HCL/PF 2 MG/2 ML VIAL. ONE ×2 (10:04→10:33)
[2020-06-12] MEDS ORDERED: VERAPAMIL 5 MG/2 ML VIAL. ONE (10:04)
[2020-06-12] MEDS ORDERED: MIDAZOLAM HCL/PF 2 MG/2 ML VIAL. IV ONE (10:15)
[2020-06-12] MEDS ORDERED: HEPARIN for IV BOLUS 10,000 UNIT/10 ML VIAL. IART ONE (10:15)
[2020-06-12] MEDS ORDERED: VERAPAMIL 5 MG/2 ML VIAL. IART ONE (10:15)
[2020-06-12] MEDS ORDERED: NITROGLYCERIN 200 MCG/2 ML SYRINGE FOR CATH/VASC LAB. IART ONE (10:15)
[2020-06-12] MEDS ORDERED: LIDOCAINE 1% PF 2 ML VIAL. INJ ONE (10:15)
[2020-06-12] MEDS ORDERED: IOHEXOL 300 MG/ML 100ML VIAL. IART ONE (10:15)
[2020-06-12] MEDS ORDERED: fentaNYL PF VIAL 100 MCG/2 ML VIAL IV ONE (10:15)
[2020-06-12] MEDS ORDERED: CONTRAST GIVEN. MC PRN (10:30)
[2020-06-12] MEDS ORDERED: BIVALIRUDIN 250 MG VIAL. IV ONE ×2 (10:43→11:00)
[2020-06-12] MEDS ORDERED: TICAGRELOR 90 MG TABLET. PO ONE (11:00)
[2020-06-12] MEDS ORDERED: ASPIRIN CHEWABLE 81 MG TABLET. PO ONE (11:15)
--- NOTE | 2020-06-12 11:18 | PDOC ---
MODERATE SEDATION ASSESSMENT RISKS/ALTERNATIVES Risks/Alternatives Risks and alternatives of this type of sedation and procedure discussed with: RISK/ALTERNATIVES: Patient H & P ON CHART H & P H & P on chart and reviewed for co-morbid conditions and appropriate labs. H&P ON CHART: Yes STATUS PREG STATUS ASSESSED: N/A MEDS/ALLERGIES REVIEWED Meds/Allergies Reviewed Medications and Allergies including time and route of recently administered narcotics and sedatives. MEDS/ALLERGIES REVIEWED: Yes ASA RATING ASA RATING: II AIRWAY ASSESSMENT Airway Assessment Airway patency, oral function limitations, presence of caps, crowns, dentures, partials, and ability to extend neck assessed. AIRWAY ASSESSMENT: Yes MALLAMPATI SCORE MALLAMPATI SCORE: II PRE-SEDATION ASSESSMENT PRE-SEDATION ASSESSMENT: Yes ROSA NEVAREZ MD Jun 12, 2020 11:18
--- NOTE | 2020-06-12 11:25 | CARD ---
MR#: [id number] Date of Study: 06/12/2020 Ordering Physician: ROSA NEVAREZ, Referring Physician: ROSA NEVAREZ, Tech: SAUD BA RTR APPROVED REPORT Technologist: SAUD BA RTR Nurse: SOUMYA BALDWIN RN Procedure(s) performed: 1. Left heart catheterization, selective coronary angiography via right pugh sradial approach 2. Successful PCI/drug-eluting stent placement to the left circumflex artery MODERATE SEDATION TIME: 40 MINUTES FLUORO TIME: 10.3 MIN DOSE: 88.1 GYCM2 CONTRAST: 130CC OMNI 300 INDICATION The indication(s) include : non-STEMI . [facility] Clinical Frailty Scale [facility] Clinical Frailty Scale: Managing Well Heart Failure Heart Failure: No PROCEDURE NARRATIVE After explaining the risks, benefits and alternative options, informed consent was obtained from lora ent. Patient was brought to the cardiac Datastage Developer and right wrist was prepped and draped in the usual fashion after confirming a positive modified Constantino's test. Arterial access was obtained in the righ t radial artery and a 6 Czech sheath was inserted. 6 Czech Christopher catheter was used to perform tony ective angiography of the left and right coronary arteries. LVEDP and transaortic gradients were cristian sured. The following findings were noted: FINDINGS 1. Hemodynamics: Left ventricular end-diastolic pressure of 18 mmHg. No pullback gradient across th e aortic valve. 2. Coronary angiography: a. The left main coronary artery arose from the left sinus of Valsalva, gave rise to the left anteri or descending and left circumflex arteries and did not show any significant stenosis. b. The left anterior descending artery showed 30% stenosis in the midsegment. c. The left circumflex artery was a codominant vessel that showed 90 to 95% stenosis in the midsegme nt. d. The right coronary artery was a codominant vessel arising from the right sinus of Valsalva that d id not show any significant stenosis. INTERVENTION Left main coronary artery was engaged with a 6 Czech XB 3.5 guide catheter and the stenosis in the m idsegment was crossed with a 0.014 inch AKT pro-water guidewire. This was predilated with a 2.5 x 12 mm Euphora balloon following which this was successfully treated with a 2.75 x 12 mm resolute Juliocesar drug-eluting stent. Follow-up angiography showed resolution of the stenosis to 0% with EVERARDO-3 dista l flow. Patient tolerated the procedure well. Hemostasis was achieved using TR band. There were no immediate complications. EVERARDO Flow EVERARDO Flow (Pre-Intervention): EVERARDO-2 EVERARDO Flow (Post-Intervention): EVERARDO-3 Conclusion 1. Severe single-vessel coronary disease involving the codominant left circumflex artery 2. Successful PCI/drug-eluting stent placement to the left circumflex artery Recommendations 1. Aspirin 81 mg daily 2. Ticagrelor 90 mg twice daily 3. Cardiovascular risk factor modification including smoking cessation 4. Cardiac rehabilitation referral Signed by : Rosa Nevarez, Electronically Approved : 06/12/2020 11:24:48
[2020-06-12] MEDS ORDERED: ACETAMINOPHEN 325 MG TABLET. PO PRN (11:30)
[2020-06-12] MEDS ORDERED: 0.9 % SODIUM CHLORIDE 10 ML DISP.SYRIN. IV PRN (11:30)
[2020-06-12] MEDS ORDERED: NITROGLYCERIN SUBLINGUAL 0.4 MG BOTTLE OF 25. SL PRN (11:30)
[2020-06-12] MEDS: METOPROLOL TART IMMED RELEASE 25 MG TABLET. PO SCH ×2 (12:26→20:28)
[2020-06-12] MEDS: NICOTINE 21MG PATCH. TD SCH (12:26)
[2020-06-12] MEDS: LISINOPRIL 20 MG TABLET PO SCH (12:26)
[2020-06-12] MEDS: IV 1/2 NORMAL SALINE 1,000 ML IV SCH (12:27)
--- NOTE | 2020-06-12 13:45 | NUR ---
Patient had a run of 14 Vtach. MICHAEL Jones with cardiology notified. No new orders at this time.
--- NOTE | 2020-06-12 13:58 | NUR ---
SS following for discharge planning. SS reviewed pt chart and discussed with pt RN. Pt is from home with spouse and is currently on room air. Pt had heart cath today. Discharge plan is to home when medically ready. SS will continue to follow for discharge planning.
--- NOTE | 2020-06-12 16:30 | PDOC2 ---
CONSULT Date of Consult Date of Consult DATE: 06/12/20 TIME: 16:20 Reason for Consult Reason for Consult: Chest pain Referring Physician Referring Physician: Dr. Almazan Identification/Chief Complaint Chief Complaint Chest pain Source Source: Chart review, Patient History of Present Illness Reason for Visit: The patient is a 49-year-old male who was admitted to the emergency room last evening after 1 to 2 hours of chest pressure. The patient has a history of gastroesophageal reflux disease and initially thought it was a recurrence of his previous symptoms. However the pain was more intense and did radiate to his left shoulder. Initial EKG showed no acute ischemic changes. Initial troponin was 0.313. Patient however does have a history of hypertension and tobacco abuse. He was admitted and treated with Lovenox. Overnight he ruled in with a peak troponin now of 10.098. He has remained pain-free overnight and is resting comfortably in bed Past Medical History Cardiovascular: HTN GI: GERD Past Surgical History Past Surgical History: Other (Left shoulder surgery. Lipoma removal.) Family History Family History: Coronary Artery Disease, High Cholestrol, Hypertension Social History 1 pack per day ALCOHOL: rare Drugs: None Current Problem List Problem List Problems Medical Problems: (1) NSTEMI, initial episode of care Status: Acute (2) Smoking addiction Status: Acute Current Medications Current Medications Current Medications Aspirin (Jessica Aspirin) 325 mg 1X ONCE PO Last administered on 06/11/20at 20:32; Start 06/11/20 at 20:30; Stop 06/11/20 at 20:31; Status DC Nitroglycerin (Nitrostat) 0.4 mg PRN Q5MIN PRN SL CP RATING > 1/10 Last administered on 06/11/20at 20:55; Start 06/11/20 at 20:30; Stop 06/11/20 at 21:22; Status DC Morphine Sulfate (Morphine Sulfate) 4 mg PRN Q15MIN PRN IV/SQ PAIN GREATER THAN 3/10 Last administered on 06/11/20at 20:56; Start 06/11/20 at 20:30; Stop 06/12/20 at 20:29 Multi-Ingredient Mouthwash/Gargle (Gi Cocktail) 20 ml 1X ONCE SWSW Last administered on 06/11/20at 20:32; Start 06/11/20 at 20:30; Stop 06/11/20 at 20:31; Status DC Enoxaparin Sodium (Lovenox Per Pharmacy Treatment Dosing) 1 each PRN DAILY PRN MC SEE COMMENTS Last administered on 06/12/20at 00:21; Start 06/11/20 at 21:15; Stop 06/12/20 at 01:18; Status DC Enoxaparin Sodium (Lovenox 100mg Syringe) 100 mg Q12HR SQ Last administered on 06/11/20at 21:58; Start 06/11/20 at 21:30; Stop 06/12/20 at 00:18; Status DC Info (Anti-Coagulation Monitoring By Pharmacy) 1 each PRN DAILY PRN MC SEE COMMENTS Last administered on 06/12/20at 00:22; Start 06/11/20 at 21:15; Stop 06/12/20 at 14:58; Status DC Ondansetron HCl (Zofran) 4 mg PRN Q8HRS PRN IV NAUSEA/VOMITING 1ST CHOICE; Start 06/11/20 at 21:30; Stop 06/12/20 at 21:29 Morphine Sulfate (Morphine Sulfate) 4 mg PRN Q2HR PRN IV SEVERE PAIN 7-10; Start 06/11/20 at 21:30; Stop 06/12/20 at 21:29 Nitroglycerin (Nitrostat) 0.4 mg PRN Q5MIN PRN SL CHEST PAIN; Start 06/11/20 at 21:30; Stop 06/12/20 at 21:29 Nicotine (Nicoderm Cq 14mg) 1 patch PRN DAILY PRN TD SMOKING CESSATION; Start 06/11/20 at 23:15 Enoxaparin Sodium (Lovenox 150mg Syringe) 130 mg Q12H SQ ; Start 06/12/20 at 09:00; Stop 06/12/20 at 01:18; Status DC Heparin Sodium (Porcine) (Heparin Sodium) 2,000 unit 1X ONCE IV Last administered on 06/12/20at 05:34; Start 06/12/20 at 06:00; Stop 06/12/20 at 11:22; Status DC Heparin Sodium/ Dextrose 250 ml @ 0 mls/hr CONT PRN IV PER PROTOCOL Last administered on 06/12/20at 05:31; Start 06/12/20 at 06:00; Stop 06/12/20 at 11:21; Status DC Heparin Sodium (Porcine) (Heparin Sodium) 3,350 unit PRN Q6HRS PRN IV FOR UFH LEVEL LESS THAN 0.2; Start 06/12/20 at 06:00; Stop 06/12/20 at 11:21; Status DC Lidocaine HCl (Xylocaine-Mpf 1% 2ml Vial) 2 ml STK-MED ONCE .ROUTE ; Start 06/12/20 at 09:55; Stop 06/12/20 at 09:55; Status DC Iohexol (Omnipaque 300 Mg/ml) 100 ml STK-MED ONCE .ROUTE ; Start 06/12/20 at 09:55; Stop 06/12/20 at 09:55; Status DC Heparin Sodium/ Sodium Chloride 1,000 ml @ As Directed STK-MED ONCE .ROUTE ; Start 06/12/20 at 09:55; Stop 06/12/20 at 09:55; Status DC Fentanyl Citrate (Fentanyl 2ml Vial) 100 mcg STK-MED ONCE .ROUTE ; Start 06/12/20 at 10:03; Stop 06/12/20 at 10:03; Status DC Midazolam HCl (Versed) 2 mg STK-MED ONCE .ROUTE ; Start 06/12/20 at 10:04; Stop 06/12/20 at 10:04; Status DC Heparin Sodium (Porcine) (Heparin Sodium) 10,000 unit STK-MED ONCE .ROUTE ; Start 06/12/20 at 10:04; Stop 06/12/20 at 10:04; Status DC Verapamil HCl (Verapamil) 5 mg STK-MED ONCE .ROUTE ; Start 06/12/20 at 10:04; Stop 06/12/20 at 10:04; Status DC Nitroglycerin (Nitroglycerin) 200 mcg STK-MED ONCE .ROUTE ; Start 06/12/20 at 10 :04; Stop 06/12/20 at 10:05; Status DC Nitroglycerin (Nitroglycerin) 200 mcg 1X ONCE IART Last administered on 06/12/20at 10:15; Start 06/12/20 at 10:15; Stop 06/12/20 at 10:22; Status DC Verapamil HCl (Verapamil) 2.5 mg 1X ONCE IART Last administered on 06/12/20at 10:15; Start 06/12/20 at 10:15; Stop 06/12/20 at 10:22; Status DC Heparin Sodium (Porcine) (Heparin Sodium) 2,500 unit 1X ONCE IART Last administered on 06/12/20at 10:15; Start 06/12/20 at 10:15; Stop 06/12/20 at 10:22; Status DC Heparin Sodium/ Sodium Chloride (HEPARIN for ARTERIAL LINE FLUSH) 1,000 unit 1X ONCE IART Last administered on 06/12/20at 10:15; Start 06/12/20 at 10:15; Stop 06/12/20 at 10:22; Status DC Heparin Sodium/ Sodium Chloride (HEPARIN for ARTERIAL LINE FLUSH) 1,000 unit 1X ONCE IART Last administered on 06/12/20at 10:15; Start 06/12/20 at 10:15; Stop 06/12/20 at 10:22; Status DC Midazolam HCl (Versed) 2 mg 1X ONCE IV Last administered on 06/12/20at 10:15; Start 06/12/20 at 10:15; Stop 06/12/20 at 10:22; Status DC Fentanyl Citrate (Fentanyl 2ml Vial) 100 mcg 1X ONCE IV Last administered on 06/12/20at 10:15; Start 06/12/20 at 10:15; Stop 06/12/20 at 10:22; Status DC Iohexol (Omnipaque 300 Mg/ml) 100 ml 1X ONCE IART Last administered on 06/12/20at 11:02; Start 06/12/20 at 10:15; Stop 06/12/20 at 10:22; Status DC Lidocaine HCl (Xylocaine-Mpf 1% 2ml Vial) 2 ml 1X ONCE INJ Last administered o n 06/12/20at 10:35; Start 06/12/20 at 10:15; Stop 06/12/20 at 10:22; Status DC Info (CONTRAST GIVEN -- Rx MONITORING) 1 each PRN DAILY PRN MC SEE COMMENTS; Start 06/12/20 at 10:30; Stop 06/14/20 at 10:29 Midazolam HCl (Versed) 2 mg STK-MED ONCE .ROUTE ; Start 06/12/20 at 10:33; Stop 06/12/20 at 10:34; Status DC Bivalirudin (Angiomax) 250 mg STK-MED ONCE IV ; Start 06/12/20 at 10:43; Stop 06/12/20 at 10:44; Status DC Bivalirudin (Angiomax) 250 mg 1X ONCE IV Last administered on 06/12/20at 10:58; Start 06/12/20 at 11:00; Stop 06/12/20 at 11:01; Status DC Ticagrelor (Brilinta) 180 mg 1X ONCE PO Last administered on 06/12/20at 11:11; Start 06/12/20 at 11:00; Stop 06/12/20 at 11:05; Status DC Aspirin (Aspirin Chewable) 81 mg DAILYWBKFT PO ; Start 06/13/20 at 08:00 Aspirin (Aspirin Chewable) 81 mg 1X ONCE PO Last administered on 06/12/20at 11:11; Start 06/12/20 at 11:15; Stop 06/12/20 at 11:18; Status DC Sodium Chloride (Normal Saline Flush) 3 ml QSHIFT PRN IV AFTER MEDS AND BLOOD DRAWS; Start 06/12/20 at 11:30 Sodium Chloride 1,000 ml @ 75 mls/hr [id number] IV Last administered on 06/12/20at 12:27; Start 06/12/20 at 11:18 Aspirin (Ecotrin) 81 mg DAILYWBKFT PO ; Start 06/13/20 at 08:00 Ticagrelor (Brilinta) 90 mg BID PO ; Start 06/13/20 at 09:00 Metoprolol Tartrate (Lopressor) 25 mg BID PO Last administered on 06/12/20at 12:26; Start 06/12/20 at 12:00 Atorvastatin Calcium (Lipitor) 40 mg QHS PO ; Start 06/12/20 at 21:00 Acetaminophen (Tylenol) 650 mg PRN Q6HRS PRN PO MILD PAIN / TEMP > 100.3'F; Start 06/12/20 at 11:30 Nitroglycerin (Nitrostat) 0.4 mg PRN Q5MIN PRN SL CHEST PAIN; Start 06/12/20 at 11:30 Lisinopril (Prinivil) 20 mg DAILY PO Last administered on 06/12/20at 12:26; Start 06/12/20 at 12:00 Nicotine (Nicoderm Cq 21mg) 1 patch DAILY TD Last administered on 06/12/20at 12:26; Start 06/12/20 at 12:15 Active Scripts Active Zantac (Ranitidine Hcl) 300 Mg Tablet 1 Tab PO QHS Reported Ibuprofen 800 Mg Tablet 800 Mg PO PRN BID PRN Lisinopril 40 Mg Tablet 40 Mg PO DAILY Allergies Allergies: Coded Allergies: No Known Drug Allergies (Unverified , 11/25/14) ROS Cardiovascular: yes Chest Pain Physical Exam General: No acute distress HEENT: Atraumatic Lungs: Clear to auscultation Heart: Regular rate Abdomen: Normal bowel sounds Vitals VITALS Vital Signs Date Time Temp Pulse Resp B/P (MAP) Pulse Ox O2 Delivery O2 Flow Rate FiO2 06/12/20 15:08 98.1 71 20 130/73 (92) 98 Room Air 98.1 06/12/20 11:17 2.0 Labs Labs Laboratory Tests Test 06/11/20 20:20 06/12/20 00:10 06/12/20 03:10 06/12/20 11:30 White Blood Count 11.1 x10^3/uL (4.0-11.0) 10.4 x10^3/uL (4.0-11.0) Red Blood Count 4.86 x10^6/uL (4.30-5.70) 4.70 x10^6/uL (4.30-5.70) Hemoglobin 14.8 g/dL (13.0-17.5) 14.6 g/dL (13.0-17.5) Hematocrit 43.8 % (39.0-53.0) 42.4 % (39.0-53.0) Mean Corpuscular Volume 90 fL (79-100) 90 fL (79-100) Mean Corpuscular Hemoglobin 30 pg (25-35) 31 pg (25-35) Mean Corpuscular Hemoglobin Concent 34 g/dL (31-37) 35 g/dL (31-37) Red Cell Distribution Width 13.7 % (11.5-14.5) 13.5 % (11.5-14.5) Platelet Count 296 x10^3/uL (140-400) 271 x10^3/uL (140-400) Neutrophils (%) (Auto) 56 % (31-73) 51 % (31-73) Lymphocytes (%) (Auto) 29 % (24-48) 34 % (24-48) Monocytes (%) (Auto) 9 % (0-9) 7 % (0-9) Eosinophils (%) (Auto) 7 % (0-3) 7 % (0-3) Basophils (%) (Auto) 1 % (0-3) 1 % (0-3) Neutrophils # (Auto) 6.2 x10^3/uL (1.8-7.7) 5.3 x10^3/uL (1.8-7.7) Lymphocytes # (Auto) 3.2 x10^3/uL (1.0-4.8) 3.6 x10^3/uL (1.0-4.8) Monocytes # (Auto) 0.9 x10^3/uL (0.0-1.1) 0.7 x10^3/uL (0.0-1.1) Eosinophils # (Auto) 0.7 x10^3/uL (0.0-0.7) 0.8 x10^3/uL (0.0-0.7) Basophils # (Auto) 0.1 x10^3/uL (0.0-0.2) 0.1 x10^3/uL (0.0-0.2) Prothrombin Time 12.1 SEC (11.7-14.0) Prothromb Time International Ratio 0.9 (0.8-1.1) D-Dimer (Lina) < 0.27 ug/mlFEU Sodium Level 140 mmol/L (136-145) 140 mmol/L (136-145) Potassium Level 4.2 mmol/L (3.5-5.1) 4.1 mmol/L (3.5-5.1) Chloride Level 103 mmol/L (98-107) 104 mmol/L (98-107) Carbon Dioxide Level 28 mmol/L (21-32) 26 mmol/L (21-32) Anion Gap 9 (6-14) 10 (6-14) Blood Urea Nitrogen 16 mg/dL (8-26) 16 mg/dL (8-26) Creatinine 1.0 mg/dL (0.7-1.3) 1.0 mg/dL (0.7-1.3) Estimated GFR (Cockcroft-Gault) 79.4 79.4 BUN/Creatinine Ratio 16 (6-20) 16 (6-20) Glucose Level 115 mg/dL (70-99) 161 mg/dL (70-99) Calcium Level 8.8 mg/dL (8.5-10.1) 8.7 mg/dL (8.5-10.1) Magnesium Level 2.1 mg/dL (1.8-2.4) Total Bilirubin 0.2 mg/dL (0.2-1.0) 0.2 mg/dL (0.2-1.0) Aspartate Amino Transf (AST/SGOT) 24 U/L (15-37) 41 U/L (15-37) Alanine Aminotransferase (ALT/SGPT) 33 U/L (16-63) 33 U/L (16-63) Alkaline Phosphatase 91 U/L (46-116) 86 U/L (46-116) Troponin I Quantitative 0.313 ng/mL (0.000-0.055) 6.135 ng/mL (0.000-0.055) 10.098 ng/mL (0.000-0.055) IM-Rpe-E-Type Natriuretic Peptide 47 pg/mL (0-124) Total Protein 6.6 g/dL (6.4-8.2) 6.4 g/dL (6.4-8.2) Albumin 3.6 g/dL (3.4-5.0) 3.4 g/dL (3.4-5.0) Albumin/Globulin Ratio 1.2 (1.0-1.7) 1.1 (1.0-1.7) Lipase 178 U/L (73-393) Thyroid Stimulating Hormone (TSH) 1.556 uIU/mL (0.358-3.74) Heparin Anti-Xa Act, Unfractionated 0.31 IU/mL (0.30-0.70) Laboratory Tests Test 06/11/20 20:20 06/12/20 00:10 06/12/20 03:10 06/12/20 11:30 White Blood Count 11.1 x10^3/uL (4.0-11.0) 10.4 x10^3/uL (4.0-11.0) Red Blood Count 4.86 x10^6/uL (4.30-5.70) 4.70 x10^6/uL (4.30-5.70) Hemoglobin 14.8 g/dL (13.0-17.5) 14.6 g/dL (13.0-17.5) Hematocrit 43.8 % (39.0-53.0) 42.4 % (39.0-53.0) Mean Corpuscular Volume 90 fL (79-100) 90 fL (79-100) Mean Corpuscular Hemoglobin 30 pg (25-35) 31 pg (25-35) Mean Corpuscular Hemoglobin Concent 34 g/dL (31-37) 35 g/dL (31-37) Red Cell Distribution Width 13.7 % (11.5-14.5) 13.5 % (11.5-14.5) Platelet Count 296 x10^3/uL (140-400) 271 x10^3/uL (140-400) Neutrophils (%) (Auto) 56 % (31-73) 51 % (31-73) Lymphocytes (%) (Auto) 29 % (24-48) 34 % (24-48) Monocytes (%) (Auto) 9 % (0-9) 7 % (0-9) Eosinophils (%) (Auto) 7 % (0-3) 7 % (0-3) Basophils (%) (Auto) 1 % (0-3) 1 % (0-3) Neutrophils # (Auto) 6.2 x10^3/uL (1.8-7.7) 5.3 x10^3/uL (1.8-7.7) Lymphocytes # (Auto) 3.2 x10^3/uL (1.0-4.8) 3.6 x10^3/uL (1.0-4.8) Monocytes # (Auto) 0.9 x10^3/uL (0.0-1.1) 0.7 x10^3/uL (0.0-1.1) Eosinophils # (Auto) 0.7 x10^3/uL (0.0-0.7) 0.8 x10^3/uL (0.0-0.7) Basophils # (Auto) 0.1 x10^3/uL (0.0-0.2) 0.1 x10^3/uL (0.0-0.2) Prothrombin Time 12.1 SEC (11.7-14.0) Prothromb Time International Ratio 0.9 (0.8-1.1) D-Dimer (Lina) < 0.27 ug/mlFEU Sodium Level 140 mmol/L (136-145) 140 mmol/L (136-145) Potassium Level 4.2 mmol/L (3.5-5.1) 4.1 mmol/L (3.5-5.1) Chloride Level 103 mmol/L (98-107) 104 mmol/L (98-107) Carbon Dioxide Level 28 mmol/L (21-32) 26 mmol/L (21-32) Anion Gap 9 (6-14) 10 (6-14) Blood Urea Nitrogen 16 mg/dL (8-26) 16 mg/dL (8-26) Creatinine 1.0 mg/dL (0.7-1.3) 1.0 mg/dL (0.7-1.3) Estimated GFR (Cockcroft-Gault) 79.4 79.4 BUN/Creatinine Ratio 16 (6-20) 16 (6-20) Glucose Level 115 mg/dL (70-99) 161 mg/dL (70-99) Calcium Level 8.8 mg/dL (8.5-10.1) 8.7 mg/dL (8.5-10.1) Magnesium Level 2.1 mg/dL (1.8-2.4) Total Bilirubin 0.2 mg/dL (0.2-1.0) 0.2 mg/dL (0.2-1.0) Aspartate Amino Transf (AST/SGOT) 24 U/L (15-37) 41 U/L (15-37) Alanine Aminotransferase (ALT/SGPT) 33 U/L (16-63) 33 U/L (16-63) Alkaline Phosphatase 91 U/L (46-116) 86 U/L (46-116) Troponin I Quantitative 0.313 ng/mL (0.000-0.055) 6.135 ng/mL (0.000-0.055) 10.098 ng/mL (0.000-0.055) TW-Zcl-H-Type Natriuretic Peptide 47 pg/mL (0-124) Total Protein 6.6 g/dL (6.4-8.2) 6.4 g/dL (6.4-8.2) Albumin 3.6 g/dL (3.4-5.0) 3.4 g/dL (3.4-5.0) Albumin/Globulin Ratio 1.2 (1.0-1.7) 1.1 (1.0-1.7) Lipase 178 U/L (73-393) Thyroid Stimulating Hormone (TSH) 1.556 uIU/mL (0.358-3.74) Heparin Anti-Xa Act, Unfractionated 0.31 IU/mL (0.30-0.70) Images Images Chest x-ray. No acute changes. Assessment/Plan Assessment/Plan 1. Non-ST elevated myocardial infarction. Peak troponin of 10.098. Patient has been pain-free overnight and treated with anticoagulation. In this setting I believe cardiac catheterization is appropriate. Risks and benefits were discussed with the patient. The patient has persistent agreed to proceed with cardiac catheterization today. 2. Hypertension. Fair control. We will continue medications and monitor. 3. Tobacco abuse. Counseled on discontinuation of tobacco. 4. Uncertain cholesterol level. Will check a lipid panel. Thank you for allowing us to participate in the care of your patient. JOE CHA MD Jun 12, 2020 16:30
[2020-06-12] MEDS ORDERED: NICOTINE POLACRILEX 2MG GUM PACKAGE of 12. BC PRN (17:45)
[2020-06-12 18:32] LABS: BILIRUBIN,URINE NEGATIVE (NEG); CLARITY,URINE CLOUDY; COLOR,URINE YELLOW; NITRITE,URINE NEGATIVE (NEG); PH,URINE 7.5 (<5.0-8.0); PROTEIN,URINE NEGATIVE (NEG-TRACE); UROBILINOGEN,URINE 0.2 mg/dL (0.2 mg/dL)
[2020-06-12 18:39] LABS: BARBITURATES NEG (NEG); BENZODIAZEPINES POS (NEG); CANNABINOIDS NEG (NEG); COCAINE NEG (NEG); METHADONE NEG (NEG); OPIATES NEG (NEG); PHENCYCLIDINE NEG (NEG)
[2020-06-12 18:40] LABS: AMPHETAMINE/METHAMPHETAMINE NEG (NEG)
[2020-06-12 18:50] LABS: AMORPHOUS SEDIMENT,UR PRESENT /HPF; BACTERIA,URINE 0 /HPF (0-FEW); RBC,URINE 0 /HPF (0-2); WBC,URINE 0 /HPF (0-4)
[2020-06-12] MEDS: ATORVASTATIN CALCIUM 20 MG TABLET PO SCH (20:27)
[2020-06-13 00:08] LABS: HEMOGLOBIN A1C 6.7 % (4.8-5.6)
[2020-06-13] MEDS: IV 1/2 NORMAL SALINE 1,000 ML IV SCH ×2 (00:38→13:58)
[2020-06-13 03:00] VITALS: BP 136/76
[2020-06-13 05:25] LABS: BASO # 0.1 x10^3/uL (0.0-0.2); BASO % 1 % (0-3); EOS # 0.7 x10^3/uL (0.0-0.7); EOS % 7 % (0-3); HEMATOCRIT 47.4 % (39.0-53.0); HEMOGLOBIN 16.2 g/dL (13.0-17.5); LYMPH % 26 % (24-48); MEAN CORPUSCULAR HEMOGLOBIN 31 pg (25-35); MEAN CORPUSCULAR HGB CONC 34 g/dL (31-37); MEAN CORPUSCULAR VOLUME 90 fL (79-100); MONO # 0.8 x10^3/uL (0.0-1.1); MONO % 7 % (0-9); NEUT # 6.7 x10^3/uL (1.8-7.7); NEUT % 60 % (31-73); PLATELET COUNT 320 x10^3/uL (140-400); RED BLOOD COUNT 5.26 x10^6/uL (4.30-5.70); RED CELL DISTRIBUTION WIDTH 13.5 % (11.5-14.5); WHITE BLOOD COUNT 11.3 x10^3/uL (4.0-11.0)
[2020-06-13 05:42] LABS: CALCIUM 8.9 mg/dL (8.5-10.1); GFR 79.4; POTASSIUM 4.1 mmol/L (3.5-5.1)
[2020-06-13 07:00] VITALS: BP 139/82
[2020-06-13] MEDS ORDERED: ASPIRIN CHEWABLE 81 MG TABLET. PO SCH (08:00)
[2020-06-13] MEDS: ASPIRIN ENTERIC COATED 81 MG TABLET.DR. PO SCH (09:00)
[2020-06-13] MEDS: METOPROLOL TART IMMED RELEASE 25 MG TABLET. PO SCH ×2 (09:00→22:03)
[2020-06-13] MEDS: TICAGRELOR 90 MG TABLET. PO SCH ×2 (09:01→22:01)
[2020-06-13] MEDS: NICOTINE 21MG PATCH. TD SCH (09:01)
[2020-06-13] MEDS: LISINOPRIL 20 MG TABLET PO SCH (09:01)
[2020-06-13 11:00] VITALS: BP 136/70
--- NOTE | 2020-06-13 11:51 | NUR ---
SS following up with discharge planning. SS reviewed pt chart and discussed with pt RN. Pt is currently on room air. Pt had heart cath on 06/12/2020. Discharge plan is to home when medically ready. SS will continue to follow for discharge planning.
[2020-06-13] MEDS ORDERED: METO25TA4 PO (12:08)
[2020-06-13] MEDS ORDERED: ASPI-886 PO (12:08)
[2020-06-13] MEDS ORDERED: NITR0.4T24 SL (12:08)
[2020-06-13] MEDS ORDERED: TICA90TA PO (12:08)
[2020-06-13] MEDS ORDERED: ATOR20TA58 PO (12:08)
--- NOTE | 2020-06-13 12:25 | PDOC ---
CARDIO Progress Notes Date and Time Date of Service 06/13/20 Time of Evaluation 1220 Subjective Subjective: No Chest Pain, No shortness of breath, No Palpitations Vitals Vitals Vital Signs Date Time Temp Pulse Resp B/P (MAP) Pulse Ox O2 Delivery O2 Flow Rate FiO2 06/13/20 09:01 70 139/82 06/13/20 08:00 Room Air 2.0 06/13/20 07:00 97.7 16 97 97.7 Weight Weight [ ] Input and Output Intake and Output Intake and Output 06/13/20 07:00 Intake Total 1860 ml Balance 1860 ml Intake Oral 1860 ml # Voids 6 Laboratory Labs Laboratory Tests Test 06/12/20 13:50 06/12/20 18:25 06/13/20 04:00 Hemoglobin A1c 6.7 % (4.8-5.6) Urine Collection Type Unknown Urine Color Yellow Urine Clarity Cloudy Urine pH 7.5 (<5.0-8.0) Urine Specific Foster 1.015 (1.000-1.030) Urine Protein Negative mg/dL (NEG-TRACE) Urine Glucose (UA) Negative mg/dL (NEG) Urine Ketones (Stick) Negative mg/dL (NEG) Urine Blood Negative (NEG) Urine Nitrite Negative (NEG) Urine Bilirubin Negative (NEG) Urine Urobilinogen Dipstick 0.2 mg/dL (0.2 mg/dL) Urine Leukocyte Esterase Negative (NEG) Urine RBC 0 /HPF (0-2) Urine WBC 0 /HPF (0-4) Urine Amorphous Sediment Present /HPF Urine Bacteria 0 /HPF (0-FEW) Urine Opiates Screen Neg (NEG) Urine Methadone Screen Neg (NEG) Urine Barbiturates Neg (NEG) Urine Phencyclidine Screen Neg (NEG) Urine Amphetamine/Methamphetamine Neg (NEG) Urine Benzodiazepines Screen Pos (NEG) Urine Cocaine Screen Neg (NEG) Urine Cannabinoids Screen Neg (NEG) Urine Ethyl Alcohol Neg (NEG) White Blood Count 11.3 x10^3/uL (4.0-11.0) Red Blood Count 5.26 x10^6/uL (4.30-5.70) Hemoglobin 16.2 g/dL (13.0-17.5) Hematocrit 47.4 % (39.0-53.0) Mean Corpuscular Volume 90 fL (79-100) Mean Corpuscular Hemoglobin 31 pg (25-35) Mean Corpuscular Hemoglobin Concent 34 g/dL (31-37) Red Cell Distribution Width 13.5 % (11.5-14.5) Platelet Count 320 x10^3/uL (140-400) Neutrophils (%) (Auto) 60 % (31-73) Lymphocytes (%) (Auto) 26 % (24-48) Monocytes (%) (Auto) 7 % (0-9) Eosinophils (%) (Auto) 7 % (0-3) Basophils (%) (Auto) 1 % (0-3) Neutrophils # (Auto) 6.7 x10^3/uL (1.8-7.7) Lymphocytes # (Auto) 3.0 x10^3/uL (1.0-4.8) Monocytes # (Auto) 0.8 x10^3/uL (0.0-1.1) Eosinophils # (Auto) 0.7 x10^3/uL (0.0-0.7) Basophils # (Auto) 0.1 x10^3/uL (0.0-0.2) Sodium Level 139 mmol/L (136-145) Potassium Level 4.1 mmol/L (3.5-5.1) Chloride Level 104 mmol/L (98-107) Carbon Dioxide Level 27 mmol/L (21-32) Anion Gap 8 (6-14) Blood Urea Nitrogen 15 mg/dL (8-26) Creatinine 1.0 mg/dL (0.7-1.3) Estimated GFR (Cockcroft-Gault) 79.4 Glucose Level 114 mg/dL (70-99) Calcium Level 8.9 mg/dL (8.5-10.1) Triglycerides Level 479 mg/dL (0-150) Cholesterol Level 239 mg/dL (0-200) LDL Cholesterol, Calculated 113 mg/dL (0-100) VLDL Cholesterol, Calculated 96 mg/dL (0-40) Non-HDL Cholesterol Calculated 209 mg/dL (0-129) HDL Cholesterol 30 mg/dL (40-60) Cholesterol/HDL Ratio 8.0 Physical Exam HEENT: Neck Supple W Full Motion Chest: Symmetric LUNGS: Clear to Auscultation Heart: S1S2, RRR, no murmurs Abdomen: Soft N/T Extremities: No Edema, Other (right radial arteriotomy site soft, clean, and dry. No ecchymosis or hematoma present. neurovascular status intact) Neurology: alert, oriented, follow commands Assessment Assessment 1. NSTEMI; Peak troponin of 10.098 2. CAD s/p PCI/DED to the LCx. Echo with preserved LV systolic function 3. Hypertension; controlled 4. Hyperlipidemia; statin 5. Elevated A1C; as per PCP 6. Tobaccoism; discussed/encouraged cessation 7. Arrhythmia; tele noted with brief burst of NSVT. most probably reperfusion related Recommendations Continue secondary prevention measures including DAPT with ASA/Brilinta Risk stratification modification Cardiac rehab referral Will monitor overnight and plan for discharge tomorrow Justicifation of Admission Dx: Justifications for Admission: Justification of Admission Dx: Yes NE: Acute NSTEMI ADONIS CARBALLO APRN Jun 13, 2020 12:25
--- NOTE | 2020-06-13 12:51 | CARD ---
MR#: [id number] Date of Study: 06/13/2020 Ordering Physician: MARCELINO LOMELI, Referring Physician: MARCELINO LOMELI Tech: Swapna Keene PATRICIA APPROVED REPORT EXAM: Two-dimensional and M-mode echocardiogram with Doppler and color Doppler. Other Information Quality : Good INDICATION Non STEMI S/P Cath RISK FACTORS Smoking 2D DIMENSIONS RVDd2.7 (2.9-3.5cm)Left Atrium(2D)3.2 (1.6-4.0cm) IVSd1.1 (0.7-1.1cm)Aortic Root(2D)2.7 (2.0-3.7cm) LVDd4.6 (3.9-5.9cm)LVOT Diameter2.1 (1.8-2.4cm) PWd1.1 (0.7-1.1cm)LVDs2.5 (2.5-4.0cm) FS (%) 30.0 %SV76.5 ml LVEF(%)60.0 (>50%) Aortic Valve AoV Peak Alberto.122.9cm/sAoV VTI20.6cm AO Peak GR.6.0mmHgLVOT Peak Alberto.118.4cm/s AO Mean GR.3mmHgAVA (VMAX)3.50cm2 LUZ MARIA (VTI)3.90cm2 Mitral Valve MV E Axslbppx33.2cm/sMV DECEL [id number] MV A Dqqnapqc81.8cm/sE/A Ratio1.2 Pulmonary Vein S1 Hcrizpuc09.0cm/sD2 Hsdrsnhg23.8cm/s LEFT VENTRICLE The left ventricle is normal size. There is normal left ventricular wall thickness. The left ventricu lar systolic function is normal. The Ejection Fraction is 55-60%. There is normal LV segmental wall m otion. The left ventricular diastolic function and filling is normal for age. RIGHT VENTRICLE The right ventricle is normal size. The right ventricular systolic function is normal. ATRIA The left atrium size is normal. The right atrium size is normal. The interatrial septum is intact wit h no evidence for an atrial septal defect or patent foramen ovale as noted on 2-D or Doppler imaging. AORTIC VALVE The aortic valve is normal in structure and function. Doppler and Color Flow revealed no significant aortic regurgitation. There is no significant aortic valvular stenosis. MITRAL VALVE The mitral valve is normal in structure and function. There is no evidence of mitral valve prolapse. There is no mitral valve stenosis. Doppler and Color Flow revealed no mitral valve regurgitation note d. TRICUSPID VALVE The tricuspid valve is normal in structure and function. Doppler and Color Flow revealed no tricuspid valve regurgitation noted. There is no tricuspid valve stenosis. PULMONIC VALVE The pulmonic valve is not well visualized. Doppler and Color Flow revealed no pulmonic valvular regur gitation. There is no pulmonic valvular stenosis. GREAT VESSELS The aortic root is normal in size. The ascending aorta is normal in size. The IVC is normal in size a nd collapses >50% with inspiration. PERICARDIAL EFFUSION There is no evidence of significant pericardial effusion. Critical Notification Critical Value: No <Conclusion> The left ventricular systolic function is normal. The Ejection Fraction is 55-60%. There is normal LV segmental wall motion. There is no evidence of significant pericardial effusion. Signed by : Rik Davis, Electronically Approved : 06/13/2020 12:50:28
[2020-06-13] MEDS ORDERED: LISI-130 PO (14:58)
[2020-06-13 15:00] VITALS: BP 134/79
[2020-06-13 19:22] VITALS: BP 122/98
[2020-06-13] MEDS: ATORVASTATIN CALCIUM 20 MG TABLET PO SCH (22:04)
[2020-06-13 23:15] VITALS: BP 156/74
[2020-06-14] MEDS: IV 1/2 NORMAL SALINE 1,000 ML IV SCH (03:18)
[2020-06-14 03:30] VITALS: BP 131/75
[2020-06-14 07:00] VITALS: BP 138/69
[2020-06-14] MEDS: NICOTINE 21MG PATCH. TD SCH (08:41)
[2020-06-14] MEDS: METOPROLOL TART IMMED RELEASE 25 MG TABLET. PO SCH (08:42)
[2020-06-14] MEDS: TICAGRELOR 90 MG TABLET. PO SCH (08:42)
[2020-06-14] MEDS: ASPIRIN ENTERIC COATED 81 MG TABLET.DR. PO SCH (08:42)
[2020-06-14] MEDS: LISINOPRIL 20 MG TABLET PO SCH (08:43)
--- NOTE | 2020-06-14 10:58 | PDOC ---
CARDIO Progress Notes Date and Time Date of Service 06/14/20 Time of Evaluation 1045 Subjective Subjective: No Chest Pain, No shortness of breath, No Palpitations Vitals Vitals Vital Signs Date Time Temp Pulse Resp B/P (MAP) Pulse Ox O2 Delivery O2 Flow Rate FiO2 06/14/20 08:43 76 131/75 06/14/20 08:00 Room Air 06/14/20 07:00 97.8 18 97 97.8 06/13/20 08:00 2.0 Weight Weight [ ] Input and Output Intake and Output Intake and Output 06/14/20 07:00 Intake Total 700 ml Output Total 1 ml Balance 699 ml Intake Oral 700 ml Output Urine Total 1 ml # Voids 3 Physical Exam HEENT: Neck Supple W Full Motion Chest: Symmetric LUNGS: Clear to Auscultation Heart: S1S2, RRR, no murmurs Abdomen: Soft N/T Extremities: No Edema, Other (right radial arteriotomy site soft, clean, and dry. No ecchymosis or hematoma present. neurovascular status intact) Neurology: alert, oriented, follow commands Assessment Assessment 1. NSTEMI; Peak troponin of 10.098 2. CAD s/p PCI/DED to the LCx. Echo with preserved LV systolic function 3. Hypertension; controlled 4. Hyperlipidemia; statin 5. Elevated A1C; as per PCP 6. Tobaccoism; discussed/encouraged cessation 7. Arrhythmia; tele noted with brief burst of NSVT. most probably reperfusion related . None further overnight. Rhythm has been stable. Recommendations Continue secondary prevention measures including DAPT with ASA/Brilinta Risk stratification modification Cardiac rehab referral Okay to discharge Follow up in our office with Dr. Yanez as scheduled. Justicifation of Admission Dx: Justifications for Admission: Justification of Admission Dx: Yes AR: Acute NSTEMI ADONIS CARBALLO APRN Jun 14, 2020 10:58
[2020-06-14 11:00] VITALS: BP 125/77
--- NOTE | 2020-06-14 11:42 | PDOC ---
[employer] PROGRESS NOTE Date of Service DOS: DATE: 06/14/20 TIME: 11:42 Chief Complaint Chief Complaint Chest pain History of Present Illness History of Present Illness 06/14/2020 Pt seen and examined. Discussed case with RN and CM. Discussed PCI and echo results with pt and significant other in room. Vitals/I&O Vitals/I&O: Vital Signs Date Time Temp Pulse Resp B/P (MAP) Pulse Ox O2 Delivery O2 Flow Rate FiO2 06/14/20 08:43 76 131/75 06/14/20 08:00 Room Air 06/14/20 07:00 97.8 18 97 97.8 06/13/20 08:00 2.0 I & O 06/13/20 06/13/20 06/14/20 15:00 23:00 07:00 Intake Total 250 ml 450 ml Output Total 1 ml Balance 250 ml 449 ml Physical Exam General: Alert, Oriented X3, Cooperative, No acute distress Heart: Regular rate, Normal S1, Normal S2 Lungs: Clear Abdomen: Normal bowel sounds Extremities: No clubbing, No cyanosis, No edema, Normal pulses, No tenderness/swelling Skin: No rashes, No breakdown, No significant lesion Review of Systems Review of Systems: no chest pain. no SOB. Assessment and Plan Assessmemt and Plan Problems Medical Problems: (1) NSTEMI, initial episode of care Status: Acute (2) Smoking addiction Status: Acute Assessment: NSTEMI CAD Hx HTN. Plan: Continue home meds. Continue Beta calvin, arnulfo inhibitor, statin, aspirin, and ticagrelor. Current smoker, discussed cessation benefits. Discussed benefits of etoh cessation. Cardiac diet. Full code. Comment Review of Relevant I have reviewed the following items janes (where applicable) has been applied. Justifications for Admission Other Justification DWIGHT DOSHI III DO Jun 14, 2020 11:42
--- NOTE | 2020-06-14 12:55 | NUR ---
Discharge Note: ELIDA BURGESS Discharge instructions and discharge home medications reviewed with Patient and a copy given. All questions have been answered and understanding verbalized. Scripts sent into pharmacy on 06/13. Pt and spouse verbalized understanding of new medications and [facility].
--- NOTE | 2020-06-18 14:01 | DS ---
DATE OF DISCHARGE: 06/14/2020 ADMISSION DIAGNOSIS: Chest pain. DISCHARGE DIAGNOSIS: Status post cardiac catheterization with stents. HOSPITAL COURSE: The patient is a pleasant middle-aged male, who presented with chest pain. He was taken to the qc lab technician and got a stent to the left circ. Over the next few days, he returned to his baseline. We discharged to home. DISPOSITION: Home. ACTIVITY: As tolerated. DIET: Low sodium. MEDICATIONS: Please see the MRAD. TOTAL TIME: 34 minutes. DWIGHT DOSHI DO DR: JOSEPHINE/ree JOB#: [id number] / [id number]
--- NOTE | 2020-06-18 14:11 | DS ---
DATE OF DISCHARGE: 06/14/2020 ADMISSION DIAGNOSIS: Chest pain. DISCHARGE DIAGNOSES: Resolving chest pain with . DICTATION ENDS HERE DWIGHT DOSHI DO DR: JOSEPHINE/ree JOB#: [id number] / [id number]
== END 2020-06-14 14:00 | disposition home or self-care (01) | DRG 247 ==
LOC: ER 19:48 → 2 SOUTH 21:45
PROVIDERS: ADMIT Internal Medicine; ATTEND Internal Medicine
PROC: 027034Z Dilation of Coronary Artery, One Artery with Drug-eluting Intraluminal Device, Percutaneous Approach (ICD-10-PCS; principal; 2020-06-12)
PROC: 4A023N7 Measurement of Cardiac Sampling and Pressure, Left Heart, Percutaneous Approach (ICD-10-PCS; 2020-06-12)
PROC: B2111ZZ Fluoroscopy of Multiple Coronary Arteries using Low Osmolar Contrast (ICD-10-PCS; 2020-06-12)
DX: I21.4 Non-ST elevation (NSTEMI) myocardial infarction (principal); I47.2 Ventricular tachycardia; I10 Essential (primary) hypertension; E78.5 Hyperlipidemia, unspecified; F17.210 Nicotine dependence, cigarettes, uncomplicated; I25.10 Atherosclerotic heart disease of native coronary artery without angina pectoris; K21.9 Gastro-esophageal reflux disease without esophagitis; K76.0 Fatty (change of) liver, not elsewhere classified; Z82.49 Family history of ischemic heart disease and other diseases of the circulatory system; Z98.61 Coronary angioplasty status; Z79.899 Other long term (current) drug therapy; Z71.6 Tobacco abuse counseling
CPT/HCPCS: 36415; 71045; 80048; 80053; 80061; 80307; 81001; 83036; 83690; 83735; 83880; 84443; 84484; 85025; 85379; 85520; 85610; 92928; 93005; 93306; 93458; 96372; 96374; 99152; 99153; 99285; 99406; C1725; C1769; C1874; C1887; C1892; J0583; J1644; J1650; J2250; J2270; J3010; J3490; Q9967; G0378

== ENCOUNTER 2021-03-06 14:39 | Emergency (ER) | payer SELFPAY ==
[~2021-03-06] VITALS: Ht 175.3 cm; Wt 110.0 kg
[~2021-03-06 14:39] MED LIST changes: +ASPI-886 PO; +ATOR20TA58 PO; +IBUP-1060 PO; +METO25TA4 PO; +NITR0.4T24 SL; +TICA90TA PO
[2021-03-06] MEDS ORDERED: ASPIRIN CHEWABLE 81 MG TABLET. PO ONE (15:15)
[2021-03-06 15:18] LABS: BASO # 0.1 x10^3/uL (0.0-0.2); BASO % 0 % (0-3); EOS # 0.6 x10^3/uL (0.0-0.7); EOS % 5 % (0-3); HEMATOCRIT 44.3 % (39.0-53.0); HEMOGLOBIN 15.2 g/dL (13.0-17.5); LYMPH # 2.4 x10^3/uL (1.0-4.8); LYMPH % 20 % (24-48); MEAN CORPUSCULAR HEMOGLOBIN 31 pg (25-35); MEAN CORPUSCULAR HGB CONC 34 g/dL (31-37); MEAN CORPUSCULAR VOLUME 90 fL (79-100); MONO # 0.6 x10^3/uL (0.0-1.1); MONO % 5 % (0-9); NEUT # 8.3 x10^3/uL (1.8-7.7); NEUT % 70 % (31-73); PLATELET COUNT 284 x10^3/uL (140-400); RED BLOOD COUNT 4.93 x10^6/uL (4.30-5.70); RED CELL DISTRIBUTION WIDTH 13.1 % (11.5-14.5); WHITE BLOOD COUNT 11.9 x10^3/uL (4.0-11.0)
--- NOTE | 2021-03-06 15:23 | ED.ADGEN ---
Past Medical History Past Medical History: GERD, Hypertension, ND, Other Additional Past Medical Histor: HIATAL HERNIA Past Surgical History: Other Additional Past Surgical Histo: Lypoma removal (shoulder),knee,L SHOULDER,DENTAL, one stent Smoking Status: Current Every Day Smoker Alcohol Use: Occasionally Drug Use: None General Adult EDM: Chief Complaint: CHEST PAIN HPI: HPI: Patient is a 50 year old male coming in for chest pain he describes as pre ssure-like with a small area distal left to his sternum that it feels sharp. Patient was at work walking around the pain started. Denies any recent stressors, heavy lifting or injuries. Patient states that the pain at maximum was 4 out of 10 and is minimal now. Patient took 2 of his nitroglycerin this afternoon. Patient is a history significant for an ND status post 1 stent 9 months ago. Patient states he has been consistent with his anticoagulant use. No other associated symptoms. Review of Systems: Review of Systems: All other systems within normal limits except for as noted in the HPI Current Medications: Current Medications Medications (Trade) Dose Ordered Sig/Vickie Start Time Stop Time Status Last Admin Dose Admin Aspirin (Aspirin Chewable) 324 mg 1X ONCE 03/06/21 15:15 03/06/21 15:16 DC 03/06/21 15:37 324 MG Allergies: Allergies: Allergies Coded Allergies Type Severity Reaction Last Updated Verified No Known Drug Allergies 11/25/14 No Physical Exam: PE: Constitutional: Well developed, well nourished, no acute distress, non-toxic appearance. [] HENT: Normocephalic, atraumatic, bilateral external ears normal, nose normal. [] Eyes: PERRLA, conjunctiva normal, no discharge. [] Neck: No rigidity, supple, no stridor. [] Cardiovascular: Regular rate and rhythm, brisk cap refill, symmetric radial pulses, no residual chest pain on palpation [] Lungs & Thorax: Non labored symmetric respirations, no tachypnea or respiratory distress [] Abdomen: Soft, nondistended. Skin: Warm, dry, no erythema, no rash. [] Back: Unremarkable Extremities: No deformities, range of motion grossly intact, no lower extremity edema [] Neurologic: Alert and oriented X 3, no focal deficits noted. [] Psychologic: Affect normal, judgement normal, mood normal. [] Current Patient Data: Labs: Laboratory Tests Test 03/06/21 14:15 03/06/21 15:32 03/06/21 16:50 White Blood Count 11.9 x10^3/uL (4.0-11.0) H Red Blood Count 4.93 x10^6/uL (4.30-5.70) Hemoglobin 15.2 g/dL (13.0-17.5) Hematocrit 44.3 % (39.0-53.0) Mean Corpuscular Volume 90 fL (79-100) Mean Corpuscular Hemoglobin 31 pg (25-35) Mean Corpuscular Hemoglobin Concent 34 g/dL (31-37) Red Cell Distribution Width 13.1 % (11.5-14.5) Platelet Count 284 x10^3/uL (140-400) Neutrophils (%) (Auto) 70 % (31-73) Lymphocytes (%) (Auto) 20 % (24-48) L Monocytes (%) (Auto) 5 % (0-9) Eosinophils (%) (Auto) 5 % (0-3) H Basophils (%) (Auto) 0 % (0-3) Neutrophils # (Auto) 8.3 x10^3/uL (1.8-7.7) H Lymphocytes # (Auto) 2.4 x10^3/uL (1.0-4.8) Monocytes # (Auto) 0.6 x10^3/uL (0.0-1.1) Eosinophils # (Auto) 0.6 x10^3/uL (0.0-0.7) Basophils # (Auto) 0.1 x10^3/uL (0.0-0.2) Sodium Level 142 mmol/L (136-145) Potassium Level 3.9 mmol/L (3.5-5.1) Chloride Level 106 mmol/L (98-107) Carbon Dioxide Level 27 mmol/L (21-32) Anion Gap 9 (6-14) Blood Urea Nitrogen 16 mg/dL (8-26) Creatinine 1.0 mg/dL (0.7-1.3) Estimated GFR (Cockcroft-Gault) 79.1 BUN/Creatinine Ratio 16 (6-20) Glucose Level 121 mg/dL (70-99) H Calcium Level 8.9 mg/dL (8.5-10.1) Phosphorus Level 4.6 mg/dL (2.6-4.7) Magnesium Level 2.0 mg/dL (1.8-2.4) Total Bilirubin 0.4 mg/dL (0.2-1.0) Aspartate Amino Transferase (AST) 21 U/L (15-37) Alanine Aminotransferase (ALT) 25 U/L (16-63) Alkaline Phosphatase 97 U/L (46-116) Troponin I Quantitative < 0.017 ng/mL (0.000-0.055) < 0.017 ng/mL (0.000-0.055) PI-Umf-I-Type Natriuretic Peptide 58 pg/mL (0-124) Total Protein 7.4 g/dL (6.4-8.2) Albumin 3.8 g/dL (3.4-5.0) Albumin/Globulin Ratio 1.1 (1.0-1.7) Lipase 155 U/L (73-393) Urine Collection Type Void Urine Color Yellow Urine Clarity Clear Urine pH 6.0 (<5.0-8.0) Urine Specific [place] 1.020 (1.000-1.030) Urine Protein Negative mg/dL (NEG-TRACE) Urine Glucose (UA) Negative mg/dL (NEG) Urine Ketones (Stick) Negative mg/dL (NEG) Urine Blood Negative (NEG) Urine Nitrite Negative (NEG) Urine Bilirubin Negative (NEG) Urine Urobilinogen Dipstick 0.2 mg/dL (0.2 mg/dL) Urine Leukocyte Esterase Negative (NEG) Urine RBC 0 /HPF (0-2) Urine WBC Rare /HPF (0-4) Urine Squamous Epithelial Cells Few /LPF Urine Amorphous Sediment Present /HPF Urine Bacteria Few /HPF (0-FEW) Urine Hyaline Casts Occasional /HPF Urine Mucus Mod /LPF Urine Opiates Screen Neg (NEG) Urine Methadone Screen Neg (NEG) Urine Barbiturates Neg (NEG) Urine Phencyclidine Screen Neg (NEG) Urine Amphetamine/Methamphetamine Neg (NEG) Urine Benzodiazepines Screen Neg (NEG) Urine Cocaine Screen Neg (NEG) Urine Cannabinoids Screen Neg (NEG) Urine Ethyl Alcohol Neg (NEG) Laboratory Tests 03/06/21 14:15 Laboratory Tests 03/06/21 14:15 Vital Signs: Vital Signs Date Time Temp Pulse Resp B/P (MAP) Pulse Ox O2 Delivery O2 Flow Rate FiO2 03/06/21 14:45 98.8 80 18 138/66 (90) 95 Room Air 98.8 EKG: EKG: Sinus rhythm with an incomplete right bundle branch block. Heart rate 74 bpm, normal axis, no ST elevation or depression, no ectopy. [] Heart Score: C/O Chest Pain: Yes HEART Score for Chest Pain: HEART Score for Chest Pain Response (Comments) Value History Moderately Suspicious 1 ECG Nonspecific Repolarizatio 1 Age >45 - < 65 1 Risk Factors >3 Risk Factors or Hx CAD 2 Total 5 Risk Factors: Risk Factors: DM, Current or recent (<one month) smoker, HTN, HLP, family history of CAD, obesity. Risk Scores: Score 0 - 3: 2.5% MACE over next 6 weeks - Discharge Home Score 4 - 6: 20.3% MACE over next 6 weeks - Admit for Clinical Observation Score 7 - 10: 72.7% MACE over next 6 weeks - Early Invasive Strategies Radiology/Procedures: Radiology/Procedures: [facility] [address] [place] [address] IMAGING REPORT Signed PATIENT: ELIDA BURGESS ACCOUNT: [id number] : 1970 LOCATION: ER AGE: 50 SEX: M EXAM STATUS: REG ER ORD. PHYSICIAN: QUETA BRANDON MD REASON: chest pain PROCEDURE: CHEST AP ONLY EXAM: XR CHEST 1V 03/06/2021 3:14 PM CLINICAL INDICATION: Chest pain COMPARISON: Chest radiograph 06/11/2020 TECHNIQUE: AP upright view of the chest FINDINGS: The heart is mildly enlarged, unchanged. Lungs are well-expanded and clear. No consolidation, pleural effusion, or pneumothorax. Pulmonary vascularity is normal. The thoracic skeleton is intact. IMPRESSION: No acute cardiopulmonary abnormality. Electronically signed by: Queta Lindsay MD (03/06/2021 3:40 PM) [id number] DICTATED and SIGNED BY: QUETA LINDSAY MD DATE: 03/06/21 [id number] [] Course & Med Decision Making: Course & Med Decision Making Pertinent Labs and Imaging studies reviewed. (See chart for details) Pain resolved and troponin negative at 48 hours past symptoms. Discussed admission for observation for chest pain. Patient does not want to be admitted, discussed he can go home but needs to return immediately if symptoms resume and follow-up with library media technician as soon as possible. [] Dragon Disclaimer: Dragon Disclaimer: This electronic medical record was generated, in whole or in part, using a voice recognition dictation system. Departure Departure Impression: Primary Impression: Chest pain Disposition: HOME / SELF CARE / HOMELESS Condition: STABLE Referrals: IDALIA SAGASTUME MD (PCP) Patient Instructions: Chest Pain (Nonspecific) QUETA BRANDON MD Mar 06, 2021 15:23
[2021-03-06 15:30] LABS: CALCIUM 8.9 mg/dL (8.5-10.1); GFR 79.1; POTASSIUM 3.9 mmol/L (3.5-5.1)
[2021-03-06 15:36] LABS: ALBUMIN 3.8 g/dL (3.4-5.0); ALBUMIN/GLOBULIN RATIO 1.1 (1.0-1.7); PHOSPHORUS 4.6 mg/dL (2.6-4.7); TOTAL BILIRUBIN 0.4 mg/dL (0.2-1.0); TOTAL PROTEIN 7.4 g/dL (6.4-8.2)
--- NOTE | 2021-03-06 15:43 | EKG ---
[facility] [address] [place] [address] Test Date: 2021-03-06 Test Time: 14:45:07 Pat Name: ELIDA BURGESS Department: Room: Gender: M Apprentice Painter Neckties: : 1970 Requested By: WILMA BRANDON Order Number: [id number] Reading MD: Measurements Intervals [place] Rate: 74 P: 29 [place]: 144 QRS: 51 QRSD: 90 T: 26 QT: 382 QTc: 429 Interpretive Statements SINUS RHYTHM INCOMPLETE RIGHT BUNDLE BRANCH BLOCK NO SPECIFIC ECG ABNORMALITIES RI6.02 No previous ECG available for comparison
--- NOTE | 2021-03-06 15:43 | RAD ---
EXAM: XR CHEST 1V 03/06/2021 3:14 PM CLINICAL INDICATION: Chest pain COMPARISON: Chest radiograph 06/11/2020 TECHNIQUE: AP upright view of the chest FINDINGS: The heart is mildly enlarged, unchanged. Lungs are well-expanded and clear. No consolidat ion, pleural effusion, or pneumothorax. Pulmonary vascularity is normal. The thoracic skeleton is i ntact. IMPRESSION: No acute cardiopulmonary abnormality. Electronically signed by: Queta Lindsay MD (03/06/2021 3:40 PM) [id number]
[2021-03-06 15:52] LABS: BILIRUBIN,URINE NEGATIVE (NEG); CLARITY,URINE CLEAR; COLOR,URINE YELLOW; NITRITE,URINE NEGATIVE (NEG); PROTEIN,URINE NEGATIVE (NEG-TRACE); UROBILINOGEN,URINE 0.2 mg/dL (0.2 mg/dL)
[2021-03-06 15:54] LABS: BARBITURATES NEG (NEG); BENZODIAZEPINES NEG (NEG); CANNABINOIDS NEG (NEG); COCAINE NEG (NEG); METHADONE NEG (NEG); OPIATES NEG (NEG); PHENCYCLIDINE NEG (NEG)
[2021-03-06 15:55] LABS: AMPHETAMINE/METHAMPHETAMINE NEG (NEG)
[2021-03-06 16:08] LABS: HYALINE CASTS, URINE OCCASIONAL /HPF
[2021-03-06 16:10] LABS: AMORPHOUS SEDIMENT,UR PRESENT /HPF; BACTERIA,URINE FEW /HPF (0-FEW); RBC,URINE 0 /HPF (0-2); WBC,URINE RARE /HPF (0-4)
[2021-03-06 17:45] VITALS: BP 124/58
== END 2021-03-06 18:20 | disposition home or self-care (01) ==
LOC: ER 14:39
DX: R07.2 Precordial pain (principal); K21.9 Gastro-esophageal reflux disease without esophagitis; I10 Essential (primary) hypertension; I25.2 Old myocardial infarction; F17.200 Nicotine dependence, unspecified, uncomplicated; Z95.5 Presence of coronary angioplasty implant and graft; Z98.890 Other specified postprocedural states
CPT/HCPCS: 36415; 71045; 80053; 80307; 81001; 83690; 83735; 83880; 84100; 84484; 85025; 93005; 99285-25

== ENCOUNTER 2021-11-07 09:47 | Inpatient (IN) | payer OTHER ==
[~2021-11-07] VITALS: Ht 175.3 cm; Wt 112.1 kg
--- NOTE | 2021-11-07 10:19 | PHYS DOC ---
Past Medical History Past Medical History: GERD, Hypertension, [place], Other Additional Past Medical Histor: HIATAL HERNIA Past Surgical History: Other Additional Past Surgical Histo: Lypoma removal (shoulder),knee,L SHOULDER,DENTAL, cardiac cath Smoking Status: Current Every Day Smoker Alcohol Use: Occasionally Drug Use: None General Adult EDM: Chief Complaint: CHEST PAIN HPI: HPI: Patient is a 51 year old male who present to ER for evaluation of substernal chest pain started yesterday afternoon. The pain was subsidedso patient was able to go to sleep. Patient woke up this morning at 2 AM, he went to work. About 2 hours ago he still having chest pain again. Patient described the pain as pressure and aching in nature. Patient had a heart attack years ago, patient said the pain is similar to his previous heart attack. Patient denies any abdominal pain, no nausea vomiting, no fever. Patient was on Plavix but he is no longer on Plavix at this time. Patient was seen by his polishing machine tender recently and they stopped his Plavix. Patient does smoke, he is not on oxygen at home. Patient said he also has epigastric abdominal pain, he drinks alcohol everyday. Review of Systems: Review of Systems: Constitutional: Denies fever or chills. [] Eyes: Denies change in visual acuity. [] HENT: Denies nasal congestion or sore throat. [] Respiratory: Denies cough or shortness of breath. [] Cardiovascular: Positive for Chest pain, no edema. GI: Positive for epigastric abdominal pain, no nausea, vomiting, bloody stools or diarrhea. [] : Denies dysuria. [] Musculoskeletal: Denies back pain or joint pain. [] Integument: Denies rash. [] Neurologic: Denies headache, focal weakness or sensory changes. [] Endocrine: Denies polyuria or polydipsia. [] Lymphatic: Denies swollen glands. [] Psychiatric: Denies depression or anxiety. [] Heart Score: C/O Chest Pain: Yes HEART Score for Chest Pain: HEART Score for Chest Pain Response (Comments) Value History Moderately Suspicious 1 ECG Nonspecific Repolarizatio 1 Age >45 - < 65 1 Risk Factors >3 Risk Factors or Hx CAD 2 Troponin < Normal Limit 0 Total 5 Risk Factors: Risk Factors: DM, Current or recent (<one month) smoker, HTN, HLP, family history of CAD, obesity. Risk Scores: Score 0 - 3: 2.5% MACE over next 6 weeks - Discharge Home Score 4 - 6: 20.3% MACE over next 6 weeks - Admit for Clinical Observation Score 7 - 10: 72.7% MACE over next 6 weeks - Early Invasive Strategies Allergies: Allergies: Allergies Coded Allergies Type Severity Reaction Last Updated Verified No Known Drug Allergies 11/07/21 No Physical Exam: PE: Constitutional: Well developed, well nourished, no acute distress, non-toxic appearance. [] HENT: Normocephalic, atraumatic, bilateral external ears normal, oropharynx moist, no oral exudates, nose normal. [] Eyes: PERRLA, EOMI, conjunctiva normal, no discharge. [] Neck: Normal range of motion, no tenderness, supple, no stridor. [] Cardiovascular:Heart rate regular rhythm, no murmur [] Lungs & Thorax: Bilateral breath sounds clear to auscultation [] Abdomen: Bowel sounds normal, soft, there is tenderness to palpation in epigastric area, no masses, no pulsatile masses. [] Skin: Warm, dry, no erythema, no rash. [] Back: No tenderness, no CVA tenderness. [] Extremities: No tenderness, no cyanosis, no clubbing, ROM intact, no edema. [] Neurologic: Alert and oriented X 3, normal motor function, normal sensory function, no focal deficits noted. [] Psychologic: Affect normal, judgement normal, mood normal. [] Current Patient Data: Labs: Laboratory Tests Test 11/07/21 10:08 11/07/21 11:45 White Blood Count 10.8 x10^3/uL Red Blood Count 4.91 x10^6/uL Hemoglobin 14.6 g/dL Hematocrit 43.9 % Mean Corpuscular Volume 89 fL Mean Corpuscular Hemoglobin 30 pg Mean Corpuscular Hemoglobin Concent 33 g/dL Red Cell Distribution Width 12.8 % Platelet Count 326 x10^3/uL Neutrophils (%) (Auto) 59 % Lymphocytes (%) (Auto) 27 % Monocytes (%) (Auto) 7 % Eosinophils (%) (Auto) 6 % Basophils (%) (Auto) 1 % Neutrophils # (Auto) 6.4 x10^3/uL Lymphocytes # (Auto) 2.9 x10^3/uL Monocytes # (Auto) 0.7 x10^3/uL Eosinophils # (Auto) 0.6 x10^3/uL Basophils # (Auto) 0.1 x10^3/uL Sodium Level 138 mmol/L Potassium Level 4.1 mmol/L Chloride Level 102 mmol/L Carbon Dioxide Level 24 mmol/L Anion Gap 12 Blood Urea Nitrogen 19 mg/dL Creatinine 1.0 mg/dL Estimated GFR (Cockcroft-Gault) 78.8 BUN/Creatinine Ratio 19 Glucose Level 204 mg/dL Calcium Level 8.4 mg/dL Magnesium Level 2.1 mg/dL Total Bilirubin 0.4 mg/dL Aspartate Amino Transf (AST/SGOT) 14 U/L Alanine Aminotransferase (ALT/SGPT) 27 U/L Alkaline Phosphatase 104 U/L Troponin I High Sensitivity 8 ng/L RG-Pko-T-Type Natriuretic Peptide 18 pg/mL Total Protein 7.4 g/dL Albumin 3.5 g/dL Albumin/Globulin Ratio 0.9 Lipase 503 U/L SARS-CoV-2 Antigen (Rapid) Negative Vital Signs: Vital Signs Date Time Temp Pulse Resp B/P (MAP) Pulse Ox O2 Delivery O2 Flow Rate FiO2 11/07/21 09:49 98.1 77 20 147/70 (95) 96 Room Air 98.1 EKG: EKG: EKG was done at 953, heart rate 76 bpm, normal sinus rhythm, no ST segment elevation, normal axis. Radiology/Procedures: Radiology/Procedures: [facility] [address] [place], [place] [id number] IMAGING REPORT Signed PATIENT: ELIDA BURGESS ACCOUNT: [id number] : 1970 LOCATION: ER AGE: 51 SEX: M EXAM STATUS: PRE ER ORD. PHYSICIAN: ULISSES KLEIN DO REASON: chest pain PROCEDURE: PORTABLE CHEST 1V Exam Date: 11/07/2021 10:00 AM XR CHEST 1V Indication: Reason: chest pain / Spl. Instructions: / History: . Comparison: March 06, 2021 FINDINGS/ IMPRESSION: Bibasilar atelectasis and infiltrates are noted. Involvement resolution is recommended. The cardiac silhouette is borderline enlarged without congestion. There is no pleural effusion or pneumothorax. Electronically signed by: Avril Goodwin MD (11/07/2021 10:16 AM) [id number] DICTATED and SIGNED BY: AVRIL GOODWIN MD DATE: 11/07/21 [id number] Course & Med Decision Making: Course & Med Decision Making Pertinent Labs and Imaging studies reviewed. (See chart for details) Patient is a 51-year-old male who present to ER for evaluation of chest pain, epigastric pain. EKG and cardiac enzymes came back normal so far. His pancreatic enzyme is elevated. Patient admitted of drinking alcohol every night. Patient be admitted to hospital for further evaluation treatment. Discussed with Dr. Ortez who agreed to admit the patient Dragon Disclaimer: Allan Disclaimer: This electronic medical record was generated, in whole or in part, using a voice recognition dictation system. Departure Departure Impression: Primary Impression: Chest pain Additional Impression: Pancreatitis Disposition: ADMITTED INPATIENT Admitting Physician: LORETTA (Dr. Ortez) Condition: STABLE Referrals: IDALIA SAGASTUME MD (PCP) ULISSES KLEIN DO Nov 07, 2021 10:19
[2021-11-07 10:21] LABS: BASO # 0.1 x10^3/uL (0.0-0.2); BASO % 1 % (0-3); EOS # 0.6 x10^3/uL (0.0-0.7); EOS % 6 % (0-3); HEMATOCRIT 43.9 % (39.0-53.0); HEMOGLOBIN 14.6 g/dL (13.0-17.5); LYMPH # 2.9 x10^3/uL (1.0-4.8); LYMPH % 27 % (24-48); MEAN CORPUSCULAR HEMOGLOBIN 30 pg (25-35); MEAN CORPUSCULAR HGB CONC 33 g/dL (31-37); MEAN CORPUSCULAR VOLUME 89 fL (79-100); MONO # 0.7 x10^3/uL (0.0-1.1); MONO % 7 % (0-9); NEUT # 6.4 x10^3/uL (1.8-7.7); NEUT % 59 % (31-73); PLATELET COUNT 326 x10^3/uL (140-400); RED BLOOD COUNT 4.91 x10^6/uL (4.30-5.70); RED CELL DISTRIBUTION WIDTH 12.8 % (11.5-14.5); WHITE BLOOD COUNT 10.8 x10^3/uL (4.0-11.0)
[2021-11-07 10:36] LABS: CALCIUM 8.4 mg/dL (8.5-10.1); GFR 78.8; POTASSIUM 4.1 mmol/L (3.5-5.1)
[2021-11-07 10:41] LABS: ALBUMIN 3.5 g/dL (3.4-5.0); ALBUMIN/GLOBULIN RATIO 0.9 (1.0-1.7); MAGNESIUM 2.1 mg/dL (1.8-2.4); TOTAL BILIRUBIN 0.4 mg/dL (0.2-1.0); TOTAL PROTEIN 7.4 g/dL (6.4-8.2)
[2021-11-07] MEDS ORDERED: ONDANSETRON PF 4 MG/2 ML VIAL. IVP PRN (13:30)
--- NOTE | 2021-11-07 15:11 | PDOC2 ---
CARDIAC CONSULT DATE OF CONSULT Date of Consult DATE: 11/07/21 TIME: 15:03 REASON FOR CONSULT Reason for Consult: Chest pain REFERRING PHYSICIAN Referring Physician: Dr. Schulte SOURCE Source: Chart review, Patient HISTORY OF PRESENT ILLNESS HISTORY OF PRESENT ILLNESS This is a 51 yo male who presented secondary to chest pain. Patient reports experiencing pressure under his lower sternal area. Patient began last night, bu t was not intense. Was able to lay down and go to sleep. 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 While at work, pain seemed to return. Pain continues to be dull ache. Has not been intense, but given cardiac history, he thought he should come to the ED for further evaluation and treatment. Denies any associated dizziness, palpitations, diaphoresis, or nausea/vomiting. Pain has not radiated. Patient reports he was sick about 3-4 weeks ago. Has been slightly short of air and has had persistent cough since that point. Has been coughing more in the last couple of days. Was seen at urgent care and rapid test for COVID was negative. thinks he likely had COVID as many of his coworkers had COVID at that time. He is fully vaccinated. PAST MEDICAL HISTORY Cardiovascular: CAD, HTN, Hyperlipidemia GI: GERD Musculoskeletal: Osteoarthritis PAST SURGICAL HISTORY Past Surgical History: Other (PCI/SAMIR to LCx, back surgery with hardware) FAMILY HISTORY Family History: Heart Disease, High Cholestrol, Hypertension SOCIAL HISTORY Smoke: 1 pack per day ALCOHOL: heavy (5 beers during week daily and up to 15 per day on weekend) Drugs: None Lives: with Family ALLERGIES ALLERGIES: Coded Allergies: No Known Drug Allergies (Unverified , 11/07/21) ROS Review of System 14 point ROS conducted with pertinent positives noted above in HPI PHYSICAL EXAM General: Alert, Oriented X3, Cooperative, No acute distress HEENT: Atraumatic Lungs: Clear to auscultation Heart: Regular rate Abdomen: Soft, No tenderness Extremities: No edema Skin: No significant lesion Neuro: Normal speech, Sensation intact Psych/Mental Status: Mental status NL, Mood NL MUSCULOSKELETAL: Osteoarthritic changes both hands VITALS/I&O VITALS/I&O: Vital Signs Date Time Temp Pulse Resp B/P (MAP) Pulse Ox O2 Delivery O2 Flow Rate FiO2 11/07/21 11:00 72 19 110/60 (77) 95 Room Air 11/07/21 09:49 98.1 98.1 LABS Lab: Laboratory Tests Test 11/07/21 10:08 11/07/21 11:45 11/07/21 12:35 White Blood Count 10.8 x10^3/uL (4.0-11.0) Red Blood Count 4.91 x10^6/uL (4.30-5.70) Hemoglobin 14.6 g/dL (13.0-17.5) Hematocrit 43.9 % (39.0-53.0) Mean Corpuscular Volume 89 fL (79-100) Mean Corpuscular Hemoglobin 30 pg (25-35) Mean Corpuscular Hemoglobin Concent 33 g/dL (31-37) Red Cell Distribution Width 12.8 % (11.5-14.5) Platelet Count 326 x10^3/uL (140-400) Neutrophils (%) (Auto) 59 % (31-73) Lymphocytes (%) (Auto) 27 % (24-48) Monocytes (%) (Auto) 7 % (0-9) Eosinophils (%) (Auto) 6 % (0-3) H Basophils (%) (Auto) 1 % (0-3) Neutrophils # (Auto) 6.4 x10^3/uL (1.8-7.7) Lymphocytes # (Auto) 2.9 x10^3/uL (1.0-4.8) Monocytes # (Auto) 0.7 x10^3/uL (0.0-1.1) Eosinophils # (Auto) 0.6 x10^3/uL (0.0-0.7) Basophils # (Auto) 0.1 x10^3/uL (0.0-0.2) Sodium Level 138 mmol/L (136-145) Potassium Level 4.1 mmol/L (3.5-5.1) Chloride Level 102 mmol/L (98-107) Carbon Dioxide Level 24 mmol/L (21-32) Anion Gap 12 (6-14) Blood Urea Nitrogen 19 mg/dL (8-26) Creatinine 1.0 mg/dL (0.7-1.3) Estimated GFR (Cockcroft-Gault) 78.8 BUN/Creatinine Ratio 19 (6-20) Glucose Level 204 mg/dL (70-99) H Calcium Level 8.4 mg/dL (8.5-10.1) L Magnesium Level 2.1 mg/dL (1.8-2.4) Total Bilirubin 0.4 mg/dL (0.2-1.0) Aspartate Amino Transferase (AST) 14 U/L (15-37) L Alanine Aminotransferase (ALT) 27 U/L (16-63) Alkaline Phosphatase 104 U/L (46-116) Troponin I High Sensitivity 8 ng/L (4-75) 8 ng/L (4-75) CU-Qfj-[id number]-Type Natriuretic Peptide 18 pg/mL (0-124) Total Protein 7.4 g/dL (6.4-8.2) Albumin 3.5 g/dL (3.4-5.0) Albumin/Globulin Ratio 0.9 (1.0-1.7) L Lipase 503 U/L (73-393) H SARS-CoV-2 Antigen (Rapid) Negative (NEGATIVE) Laboratory Tests 11/07/21 10:08 Laboratory Tests 11/07/21 10:08 ECHOCARDIOGRAM ECHOCARDIOGRAM <Conclusion> The left ventricular systolic function is normal. The Ejection Fraction is 55-60%. There is normal LV segmental wall motion. There is no evidence of significant pericardial effusion. DATE: 06/13/20 1141 HEART CATH HEART CATH FINDINGS 1. Hemodynamics: Left ventricular end-diastolic pressure of 18 mmHg. No pullback gradient across the aortic valve. 2. Coronary angiography: a. The left main coronary artery arose from the left sinus of Valsalva, gave rise to the left anterior descending and left circumflex arteries and did not show any significant stenosis. b. The left anterior descending artery showed 30% stenosis in the midsegment. c. The left circumflex artery was a codominant vessel that showed 90 to 95% stenosis in the midsegment. d. The right coronary artery was a codominant vessel arising from the right sinus of Valsalva that did not show any significant stenosis. Conclusion 1. Severe single-vessel coronary disease involving the codominant left circumflex artery 2. Successful PCI/drug-eluting stent placement to the left circumflex artery Recommendations 1. Aspirin 81 mg daily 2. Ticagrelor 90 mg twice daily 3. Cardiovascular risk factor modification including smoking cessation 4. Cardiac rehabilitation referral DATE: 06/12/20 1108 ASSESSMENT/PLAN ASSESSMENT/PLAN 1. Chest pain, atypical; trop negative x2 2. CAD s/p PCI/SAMIR to the LCx 05/2020. Echo 06/18 with preserved LV systolic function 3. Hypertension; controlled 4. Hyperlipidemia; statin 5. Diabetes, II 6. Elevated lipase 7. ETOH misuse 8. Tobaccoism; discussed/encouraged cessation 9. Abnormal CXR; bilateral infiltrates noted. ? PNA Recommendations Trend troponin Lipids Resume secondary prevention measures Echo to assess LV systolic function Probable outpatient ischemic evaluation Supportive care ADONIS CARBALLO APRN Nov 07, 2021 15:11
[2021-11-07] MEDS ORDERED: NITROGLYCERIN SUBLINGUAL 0.4 MG BOTTLE OF 25. SL PRN (15:45)
[2021-11-07] MEDS ORDERED: MORPHINE SULFATE 2 MG/ML INJ. IV PRN (15:45)
[2021-11-07] MEDS ORDERED: IV DEXTROSE 5%-LACT RINGERS 1,000 ML IV PRN (15:45)
[2021-11-07 16:16] LABS: PROTHROMBIN TIME PATIENT 11.9 SEC (11.7-14.0)
--- NOTE | 2021-11-07 16:19 | HP ---
DATE OF SERVICE: 11/07/2021 ADMIT DATE: 11/07/2021 CHIEF COMPLAINT: Chest pain, abdominal pain. HISTORY OF PRESENT ILLNESS: The patient is a pleasant 51-year-old male who smokes 2 packs a day and drinks 15 beers a day. Basically, he presented with chest pain. He has known previous coronary artery disease with 1 stent. While in the ER, we noticed that his troponins were negative, but his lipase is high. It appears he has pancreatitis. I discussed the case with the ER physician. We are going to admit the patient and give him pancreatitis protocol and consult GI and Cardiology. PAST MEDICAL HISTORY: Alcoholism, severe tobacco abuse, overweight, CAD, previous stents, hypertension, hyperlipidemia, GERD, chronic anticoagulation. ALLERGIES: None. FAMILY HISTORY: Diabetes. SOCIAL HISTORY: He drinks and smokes heavily. No drugs. He likes to ride motorcycles. He is . He is under a lot of stress because they just got a notice that they are selling the house that they have been renting for the past 15 years, so they are looking for a place to live. MEDICATIONS: Reviewed. He is on Brilinta, atorvastatin, nitro, metoprolol, lisinopril, aspirin, and Zantac. REVIEW OF SYSTEMS: GENERAL: No history of weight change, weakness or fevers. SKIN: No bruising, hair changes or rashes. EYES: No blurred, double or loss of vision. NOSE AND THROAT: No history of nosebleeds, hoarseness or sore throat. HEART: No history of palpitations, chest pain or shortness of breath on exertion. LUNGS: Denies cough, hemoptysis, wheezing or shortness of breath. GASTROINTESTINAL: Denies changes in appetite, nausea, vomiting, diarrhea or constipation. GENITOURINARY: No history of frequency, urgency, hesitancy or nocturia. NEUROLOGIC: Denies history of numbness, tingling, tremor or weakness. PSYCHIATRIC: No history of panic, anxiety or depression. ENDOCRINE: No history of heat or cold intolerance, polyuria or polydipsia. EXTREMITIES: Denies muscle weakness, joint pain, pain on walking or stiffness. PHYSICAL EXAMINATION: VITALS: Within normal limits and are stable. GENERAL: No apparent distress. Alert and oriented. HEENT: Normal cephalic atraumatic, external auditory canals are patent. Eyes: Extraocular muscles are intact, pupils are equally round and reactive to light and accommodation. MUSCULOSKELETAL: Well developed, well nourished, good range of motion. ENDOCRINE: No thyromegaly was palpated. LYMPHATICS: No cervical chain or axillary nodes were noted. HEMATOPOIETIC: No bruising. NECK: Supple, no JVD, no thyromegaly was noted. LUNGS: Clear to auscultation in all lung johnson without rhonchi or wheezing. HEART: RRR, S1, S2 present. Peripheral pulses intact, no obvious murmurs were noted. ABDOMEN: Distended, obese, decreased bowel sounds, tender in the left upper quadrant. EXTREMITIES: Without any cyanosis, clubbing, or edema. Pedal pulses intact, Homans sign is negative. NEUROLOGIC: Normal speech, normal tone. A and O x 3, moves all extremities, no obvious focal deficits. PSYCHIATRIC: Normal affect, normal mood. Stable. SKIN: He has multiple tattoos. VASCULAR: Good capillary refill, neurovascular bundle appears to be intact. LABORATORY DATA: Electrolytes are normal. Glucose is high at 204. Troponin is 8, we repeated it, it is still 8. Lipase is 503. COVID testing is negative. Chest x-ray shows bibasilar atelectasis and infiltrates. ASSESSMENT AND PLAN: Atypical chest pain in a middle-aged male who also has known coronary artery disease with incidental finding of pancreatitis and abnormal chest x-ray. The patient has been admitted. We have consulted Cardiology and GI. We will go ahead and consult Pulmonary. Serial enzymes, serial EKGs, cardiac monitoring. I am checking a daily lipase level. P.r.n. morphine, nicotine patch per his request, D5 lactated Ringer's at 75 mL an hour as we are out of PPN. TSH. We will consider alcohol withdrawal protocol if we need it. Check INR. Home meds. Deep venous thrombosis prophylaxis. Full code. Prognosis guarded. I told him to please quit drinking and smoking. JOSEPHINE/GIGI DR: JOSEPHINE/ree TID: [id number]
--- NOTE | 2021-11-07 16:37 | PDOC2 ---
GI CONSULT Date of Service: DATE: 11/07/21 TIME: 16:28 Reason For Consult: pancreatitis HPI: HPI: 51 y/o male to ER w/ substernal/epigastric pressure/tightness like someone was pressing down. Began yesterday evening, then resolved (?after antacid). Recurred early this morning while at work (works nights). Really not bothersome now, doesn't even need pain meds and feels hungry. Mostly came to the ER due to cardiac history. Occasional "bad" reflux - takes prescription meds (helps) sometimes. No dysphagia, n/v, chronic abd pain, diarrhea, constipation, hematochezia, melena, or weight loss. No previous EGD or colonoscopy. No GB, liver, pancreas, or PUD history. H/o CAD w/ stent - on ASA but off Brilinta and Plavix. No NSAIDs, occasional Tylenol. Has been eating pork chops w/ bbq sauce (specifically very spicy sauce). Exposed to COVID several weeks ago, has had a cough. Under a lot of stress. Supportive Radha present. PMH: PMH: CAD, HTN, HLD, GERD, OA cardiac stent, back surgery FH: Family History: Cancer (lung), Other (emphysema) Social History: Smoke: 2 packs per day ALCOHOL: heavy (drinks 4 times weekly - 5 or 6 beers during the week, 15-16 on weekends, also more fireball recently per ) Drugs: None ROS: GEN: Denies fevers, chills, sweats HEENT: Denies blurred vision, sore throat CV: +chest pain RESP: Denies shortness of air, cough GI: Per HPI : Denies hematuria, dysuria ENDO: Denies weight changes NEURO: Denies confusion, dizziness MSK: Denies weakness, joint pain/swelling SKIN: Denies jaundice, pruritus Vitals: Vitals: Vital Signs Date Time Temp Pulse Resp B/P (MAP) Pulse Ox O2 Delivery O2 Flow Rate FiO2 11/07/21 11:00 72 19 110/60 (77) 95 Room Air 11/07/21 09:49 98.1 98.1 Labs: Labs: Laboratory Tests Test 11/07/21 10:08 11/07/21 11:45 11/07/21 12:35 11/07/21 15:35 White Blood Count 10.8 x10^3/uL (4.0-11.0) Red Blood Count 4.91 x10^6/uL (4.30-5.70) Hemoglobin 14.6 g/dL (13.0-17.5) Hematocrit 43.9 % (39.0-53.0) Mean Corpuscular Volume 89 fL (79-100) Mean Corpuscular Hemoglobin 30 pg (25-35) Mean Corpuscular Hemoglobin Concent 33 g/dL (31-37) Red Cell Distribution Width 12.8 % (11.5-14.5) Platelet Count 326 x10^3/uL (140-400) Neutrophils (%) (Auto) 59 % (31-73) Lymphocytes (%) (Auto) 27 % (24-48) Monocytes (%) (Auto) 7 % (0-9) Eosinophils (%) (Auto) 6 % (0-3) Basophils (%) (Auto) 1 % (0-3) Neutrophils # (Auto) 6.4 x10^3/uL (1.8-7.7) Lymphocytes # (Auto) 2.9 x10^3/uL (1.0-4.8) Monocytes # (Auto) 0.7 x10^3/uL (0.0-1.1) Eosinophils # (Auto) 0.6 x10^3/uL (0.0-0.7) Basophils # (Auto) 0.1 x10^3/uL (0.0-0.2) Sodium Level 138 mmol/L (136-145) Potassium Level 4.1 mmol/L (3.5-5.1) Chloride Level 102 mmol/L (98-107) Carbon Dioxide Level 24 mmol/L (21-32) Anion Gap 12 (6-14) Blood Urea Nitrogen 19 mg/dL (8-26) Creatinine 1.0 mg/dL (0.7-1.3) Estimated GFR (Cockcroft-Gault) 78.8 BUN/Creatinine Ratio 19 (6-20) Glucose Level 204 mg/dL (70-99) Calcium Level 8.4 mg/dL (8.5-10.1) Magnesium Level 2.1 mg/dL (1.8-2.4) Total Bilirubin 0.4 mg/dL (0.2-1.0) Aspartate Amino Transf (AST/SGOT) 14 U/L (15-37) Alanine Aminotransferase (ALT/SGPT) 27 U/L (16-63) Alkaline Phosphatase 104 U/L (46-116) Troponin I High Sensitivity 8 ng/L (4-75) 8 ng/L (4-75) 8 ng/L (4-75) [id number]-Hmm-[id number]-Type Natriuretic Peptide 18 pg/mL (0-124) Total Protein 7.4 g/dL (6.4-8.2) Albumin 3.5 g/dL (3.4-5.0) Albumin/Globulin Ratio 0.9 (1.0-1.7) Lipase 503 U/L (73-393) SARS-CoV-2 Antigen (Rapid) Negative (NEGATIVE) Prothrombin Time 11.9 SEC (11.7-14.0) Prothromb Time International Ratio 0.9 (0.8-1.1) Allergies: Coded Allergies: No Known Drug Allergies (Unverified , 11/07/21) Imaging: Imaging: CXR 11/07/21 IMPRESSION: Bibasilar atelectasis and infiltrates are noted. Involvement resolution is recommended. The cardiac silhouette is borderline enlarged without congestion. There is no pleural effusion or pneumothorax. PE: GEN: NAD HEENT: Atraumatic, PERRL LUNGS: cough, diminished HEART: RRR ABD: NABS, S/NT, large, ventral hernia (non-tender) EXTREMITY: No edema SKIN: No rashes, no jaundice NEURO/PSYCH: A & O 3 A/P: A/P: Substernal/epigastric discomfort Mild lipase elevation Acid reflux CRC screen - none H/o CAD w/ stent on ASA Alcohol misuse +tobacco Rapid COVID negative -- Currently pain-free. Possible pancreatitis considering alcohol history - check CT for further eval, could also consider GB imaging. Add PPI for h/o reflux. Okay w/ GI for clear liquids, slowly advance if tolerates. Outpt scopes. STEVEN KAUFMAN Nov 07, 2021 16:37
[2021-11-07] MEDS ORDERED: LIDO:MAALOX 1:1 20 ML SINGLE DOSE. PO PRN (16:45)
[2021-11-07] MEDS ORDERED: IOHEXOL 240 MG/ML 50ML VIAL. PO ONE (17:00)
[2021-11-07] MEDS: LISINOPRIL 20 MG TABLET PO SCH ×2 (17:00→20:41)
[2021-11-07] MEDS ORDERED: IOHEXOL 300 MG/ML 100ML VIAL. IV ONE (17:00)
[2021-11-07] MEDS ORDERED: CONTRAST GIVEN. MC PRN (17:15)
--- NOTE | 2021-11-07 17:31 | RAD ---
EXAM: Abdomen and pelvis CT with intravenous contrast. HISTORY: Epigastric pain. Elevated lipase. TECHNIQUE: Computed tomographic images of the abdomen and pelvis were obtained following the administ ration of intravenous contrast. Multiplanar reformatting was performed. *One or more of the following individualized dose reduction techniques were utilized for this examina tion: 1. Automated exposure control. 2. Adjustment of the mA and/or kV according to patient size. 3. Use of iterative reconstruction technique. COMPARISON: 03/05/2019. FINDINGS: Evaluation of the lower thorax demonstrates minimal emphysema. There is minimal posterior d ependent and basilar atelectasis. There is no infiltrate or pleural effusion. There is hepatic steatosis. No focal hepatic lesion is seen. There is fatty sparing along the gallbla dder fossa. The gallbladder, pancreas, spleen and adrenal glands are unremarkable. The kidneys are un remarkable. There is mild urinary bladder wall thickening likely due to relative under distention. Th ere is no appendicitis. There is no bowel obstruction. There is no abnormal bowel wall thickening. There is a normal caliber aorta. There is a stable nonspecific left retroperitoneal lymph node at the level of the superior mesenteric artery. The greater than two-year course of stability favors benign ity. There is no suspicious lymph node. There are degenerative changes involving the spine and hips. There is no acute osseous finding or suspicious osseous lesion. IMPRESSION: 1. Hepatic steatosis. 2. No convincing acute abdominal or pelvic finding. Specifically, no CT evidence of pancreatitis. Electronically signed by: Yen Bonilla MD (11/07/2021 5:28 PM) [id number]
[2021-11-07 17:50] VITALS: BP 124/61
[2021-11-07] MEDS ORDERED: LISI20TA18 PO (19:33)
[2021-11-07] MEDS ORDERED: ACET325T9 PO (19:33)
[2021-11-07] MEDS ORDERED: ATOR40TA59 PO (19:33)
[2021-11-07] MEDS ORDERED: METO50TA4 PO (19:33)
--- NOTE | 2021-11-07 19:42 | NUR ---
Patient arrived to room 670 via wheelchair from ER at 1745. Patient A&OX4. VSS. No complaints of pain at this time. The patient, ELIDA BURGESS, 51 y/o, M admitted by DWIGHT DOSHI III, DO, was given written information regarding hospital policies, unit procedures and contact persons. Valuables were checked and noted. Will continue to monitor.
[2021-11-07 19:53] VITALS: BP 130/59
[2021-11-07] MEDS: THIAMINE 100 MG TABLET. PO SCH (20:40)
[2021-11-07] MEDS: PANTOPRAZOLE 40 MG TABLET.DR. PO SCH (20:41)
[2021-11-07] MEDS ORDERED: ATORVASTATIN CALCIUM 20 MG TABLET PO SCH (21:00)
[2021-11-07] MEDS ORDERED: METOPROLOL TART IMMED RELEASE 25 MG TABLET. PO SCH (21:00)
[2021-11-07] MEDS ORDERED: TICAGRELOR 90 MG TABLET. PO SCH (21:00)
[2021-11-07 22:06] VITALS: BP 140/58
[2021-11-08 02:35] VITALS: BP 138/62
[2021-11-08 03:42] LABS: HEMATOCRIT 43.5 % (39.0-53.0); HEMOGLOBIN 14.7 g/dL (13.0-17.5); RED BLOOD COUNT 4.89 x10^6/uL (4.30-5.70); RED CELL DISTRIBUTION WIDTH 12.8 % (11.5-14.5); WHITE BLOOD COUNT 9.5 x10^3/uL (4.0-11.0)
[2021-11-08 04:00] LABS: ALBUMIN 3.3 g/dL (3.4-5.0); CREATININE 0.9 mg/dL (0.7-1.3); POTASSIUM 4.5 mmol/L (3.5-5.1); TOTAL BILIRUBIN 0.4 mg/dL (0.2-1.0); TOTAL PROTEIN 6.6 g/dL (6.4-8.2)
[2021-11-08 07:00] VITALS: BP 106/64
--- NOTE | 2021-11-08 07:28 | EKG ---
[facility] [address] [place] [address] Test Date: 2021-11-07 Test Time: 10:22:58 Pat Name: ELIDA BURGESS Department: Room: [facility] Gender: M Technician Preventative Medicine: : 1970 Requested By: ULISSES KLEIN Order Number: [id number] Reading MD: Con Sanabria MD Measurements Intervals [place] Rate: 79 P: 42 WY: 148 QRS: 42 QRSD: 88 T: 20 QT: 360 QTc: 414 Interpretive Statements SINUS RHYTHM Electronically Signed On 11-12-2021 9:58:13 AMUSEMENT CENTRE MANAGER by Con Sanabria MD
--- NOTE | 2021-11-08 07:28 | EKG ---
[facility] [address] [place] [address] Test Date: 2021-11-07 Test Time: 09:50:43 Pat Name: ELIDA BURGESS Department: Room: [facility] Gender: M Copy Preparer: : 1970 Requested By: ULISSES KLEIN Order Number: [id number] Reading MD: Con Sanabria MD Measurements Intervals [place] Rate: 76 P: 34 WY: 140 QRS: 61 QRSD: 88 T: 21 QT: 364 QTc: 414 Interpretive Statements SINUS RHYTHM Electronically Signed On 11-12-2021 9:58:22 NATURAL GAS INSPECTOR by Con Sanabria MD
[2021-11-08] MEDS ORDERED: ASPIRIN ENTERIC COATED 81 MG TABLET.DR. PO SCH (08:00)
[2021-11-08] MEDS ORDERED: NICOTINE 21MG PATCH. TD SCH (09:00)
[2021-11-08] MEDS ORDERED: METOPROLOL SUCC 24HR ER 50 MG TAB.ER.24H. PO SCH (09:00)
[2021-11-08] MEDS: PANTOPRAZOLE 40 MG TABLET.DR. PO SCH (09:21)
[2021-11-08] MEDS: THIAMINE 100 MG TABLET. PO SCH (09:23)
[2021-11-08] MEDS: LISINOPRIL 20 MG TABLET PO SCH (09:23)
--- NOTE | 2021-11-08 09:35 | PDOC ---
CARDIO Progress Notes Date and Time Date of Service 11/08/21 Time of Evaluation 0930 Subjective Subjective: No Chest Pain, No shortness of breath, No Palpitations Vitals Vitals Vital Signs Date Time Temp Pulse Resp B/P (MAP) Pulse Ox O2 Delivery O2 Flow Rate FiO2 11/08/21 09:23 74 106/64 11/08/21 07:00 96.8 20 96 Room Air 96.8 Weight Weight [ ] Input and Output Intake and Output Intake and Output 11/08/21 07:00 Intake Total 1060 ml Output Total 0 ml Balance 1060 ml Intake Oral 1060 ml Output Urine Total 0 ml # Voids 1 Laboratory Labs Laboratory Tests Test 11/07/21 10:08 11/07/21 11:45 11/07/21 12:35 11/07/21 15:35 White Blood Count 10.8 x10^3/uL (4.0-11.0) Red Blood Count 4.91 x10^6/uL (4.30-5.70) Hemoglobin 14.6 g/dL (13.0-17.5) Hematocrit 43.9 % (39.0-53.0) Mean Corpuscular Volume 89 fL (79-100) Mean Corpuscular Hemoglobin 30 pg (25-35) Mean Corpuscular Hemoglobin Concent 33 g/dL (31-37) Red Cell Distribution Width 12.8 % (11.5-14.5) Platelet Count 326 x10^3/uL (140-400) Neutrophils (%) (Auto) 59 % (31-73) Lymphocytes (%) (Auto) 27 % (24-48) Monocytes (%) (Auto) 7 % (0-9) Eosinophils (%) (Auto) 6 % (0-3) Basophils (%) (Auto) 1 % (0-3) Neutrophils # (Auto) 6.4 x10^3/uL (1.8-7.7) Lymphocytes # (Auto) 2.9 x10^3/uL (1.0-4.8) Monocytes # (Auto) 0.7 x10^3/uL (0.0-1.1) Eosinophils # (Auto) 0.6 x10^3/uL (0.0-0.7) Basophils # (Auto) 0.1 x10^3/uL (0.0-0.2) Sodium Level 138 mmol/L (136-145) Potassium Level 4.1 mmol/L (3.5-5.1) Chloride Level 102 mmol/L (98-107) Carbon Dioxide Level 24 mmol/L (21-32) Anion Gap 12 (6-14) Blood Urea Nitrogen 19 mg/dL (8-26) Creatinine 1.0 mg/dL (0.7-1.3) Estimated GFR (Cockcroft-Gault) 78.8 BUN/Creatinine Ratio 19 (6-20) Glucose Level 204 mg/dL (70-99) Calcium Level 8.4 mg/dL (8.5-10.1) Magnesium Level 2.1 mg/dL (1.8-2.4) Total Bilirubin 0.4 mg/dL (0.2-1.0) Aspartate Amino Transf (AST/SGOT) 14 U/L (15-37) Alanine Aminotransferase (ALT/SGPT) 27 U/L (16-63) Alkaline Phosphatase 104 U/L (46-116) Troponin I High Sensitivity 8 ng/L (4-75) 8 ng/L (4-75) 8 ng/L (4-75) SB-Kdu-[id number]-Type Natriuretic Peptide 18 pg/mL (0-124) Total Protein 7.4 g/dL (6.4-8.2) Albumin 3.5 g/dL (3.4-5.0) Albumin/Globulin Ratio 0.9 (1.0-1.7) Lipase 503 U/L (73-393) Coronavirus (COVID-19)(PCR) Not detected (NOT DETECTD) SARS-CoV-2 Antigen (Rapid) Negative (NEGATIVE) Prothrombin Time 11.9 SEC (11.7-14.0) Prothromb Time International Ratio 0.9 (0.8-1.1) Test 11/08/21 03:05 White Blood Count 9.5 x10^3/uL (4.0-11.0) Red Blood Count 4.89 x10^6/uL (4.30-5.70) Hemoglobin 14.7 g/dL (13.0-17.5) Hematocrit 43.5 % (39.0-53.0) Mean Corpuscular Volume 89 fL (79-100) Mean Corpuscular Hemoglobin 30 pg (25-35) Mean Corpuscular Hemoglobin Concent 34 g/dL (31-37) Red Cell Distribution Width 12.8 % (11.5-14.5) Platelet Count 308 x10^3/uL (140-400) Sodium Level 140 mmol/L (136-145) Potassium Level 4.5 mmol/L (3.5-5.1) Chloride Level 103 mmol/L (98-107) Carbon Dioxide Level 26 mmol/L (21-32) Anion Gap 11 (6-14) Blood Urea Nitrogen 15 mg/dL (8-26) Creatinine 0.9 mg/dL (0.7-1.3) Estimated GFR (Cockcroft-Gault) 89.0 BUN/Creatinine Ratio 17 (6-20) Glucose Level 136 mg/dL (70-99) Calcium Level 8.0 mg/dL (8.5-10.1) Total Bilirubin 0.4 mg/dL (0.2-1.0) Aspartate Amino Transf (AST/SGOT) 26 U/L (15-37) Alanine Aminotransferase (ALT/SGPT) 33 U/L (16-63) Alkaline Phosphatase 105 U/L (46-116) Total Protein 6.6 g/dL (6.4-8.2) Albumin 3.3 g/dL (3.4-5.0) Albumin/Globulin Ratio 1.0 (1.0-1.7) Triglycerides Level 209 mg/dL (0-150) Cholesterol Level 169 mg/dL (0-200) LDL Cholesterol, Calculated 93 mg/dL (0-100) VLDL Cholesterol, Calculated 42 mg/dL (0-40) Non-HDL Cholesterol Calculated 135 mg/dL (0-129) HDL Cholesterol 34 mg/dL (40-60) Cholesterol/HDL Ratio 5.0 Lipase 189 U/L (73-393) Thyroid Stimulating Hormone (TSH) 1.533 uIU/mL (0.358-3.74) Physical Exam HEENT: Neck Supple W Full Motion Chest: Symmetric LUNGS: Clear to Auscultation Heart: RRR Abdomen: Soft N/T Extremities: No Edema Neurology: alert, oriented, follow commands Assessment Assessment 1. Chest pain, atypical; AMI ruled out. ? GERD 2. CAD s/p PCI/SAMIR to the LCx 05/2020. Echo 06/18 with preserved LV systolic function 3. Hypertension; controlled 4. Hyperlipidemia; statin 5. Diabetes, II 6. Elevated lipase; CT abdomen pelvis without acute findinfs 7. ETOH misuse 8. Tobaccoism; discussed/encouraged cessation 9. Abnormal CXR; bilateral infiltrates noted. ? PNA Recommendations Secondary prevention measures Echo pending Will arranged outpatient ischemic evaluation Supportive care Okay to discharge from a CV standpoint and follow up in our office with Dr. Beau Dickinsonicifation of Admission Dx: Justifications for Admission: Justification of Admission Dx: Yes NC: Acute NSTEMI ADONIS CARBALLO APRN Nov 08, 2021 09:35
--- NOTE | 2021-11-08 09:50 | PDOC ---
Date of Service: DATE: 11/08/21 TIME: 09:45 Subjective: Subjective: Dressed and ready to leave. Tolerating regular diet - in fact, his is bringing Kassi's. No recurrence of pain. Wonders if stress can be the cause of all this - moving to a new place, daughter having some problems, etc. - more money going out than coming in, needs to get back to work. Mentions needs a note for his dog/emotional support animal - says d/w cardiology. Objective: Vital Signs: Vital Signs Date Time Temp Pulse Resp B/P (MAP) Pulse Ox O2 Delivery O2 Flow Rate FiO2 11/08/21 09:23 74 106/64 11/08/21 07:00 96.8 20 96 Room Air 96.8 Labs: Laboratory Tests Test 11/07/21 10:08 11/07/21 11:45 11/07/21 12:35 11/07/21 15:35 White Blood Count 10.8 x10^3/uL Red Blood Count 4.91 x10^6/uL Hemoglobin 14.6 g/dL Hematocrit 43.9 % Mean Corpuscular Volume 89 fL Mean Corpuscular Hemoglobin 30 pg Mean Corpuscular Hemoglobin Concent 33 g/dL Red Cell Distribution Width 12.8 % Platelet Count 326 x10^3/uL Neutrophils (%) (Auto) 59 % Lymphocytes (%) (Auto) 27 % Monocytes (%) (Auto) 7 % Eosinophils (%) (Auto) 6 % Basophils (%) (Auto) 1 % Neutrophils # (Auto) 6.4 x10^3/uL Lymphocytes # (Auto) 2.9 x10^3/uL Monocytes # (Auto) 0.7 x10^3/uL Eosinophils # (Auto) 0.6 x10^3/uL Basophils # (Auto) 0.1 x10^3/uL Sodium Level 138 mmol/L Potassium Level 4.1 mmol/L Chloride Level 102 mmol/L Carbon Dioxide Level 24 mmol/L Anion Gap 12 Blood Urea Nitrogen 19 mg/dL Creatinine 1.0 mg/dL Estimated GFR (Cockcroft-Gault) 78.8 BUN/Creatinine Ratio 19 Glucose Level 204 mg/dL Calcium Level 8.4 mg/dL Magnesium Level 2.1 mg/dL Total Bilirubin 0.4 mg/dL Aspartate Amino Transf (AST/SGOT) 14 U/L Alanine Aminotransferase (ALT/SGPT) 27 U/L Alkaline Phosphatase 104 U/L Troponin I High Sensitivity 8 ng/L 8 ng/L 8 ng/L DE-Ulk-X-Type Natriuretic Peptide 18 pg/mL Total Protein 7.4 g/dL Albumin 3.5 g/dL Albumin/Globulin Ratio 0.9 Lipase 503 U/L Coronavirus (COVID-19)(PCR) Not detected SARS-CoV-2 Antigen (Rapid) Negative Prothrombin Time 11.9 SEC Prothromb Time International Ratio 0.9 Test 11/08/21 03:05 White Blood Count 9.5 x10^3/uL Red Blood Count 4.89 x10^6/uL Hemoglobin 14.7 g/dL Hematocrit 43.5 % Mean Corpuscular Volume 89 fL Mean Corpuscular Hemoglobin 30 pg Mean Corpuscular Hemoglobin Concent 34 g/dL Red Cell Distribution Width 12.8 % Platelet Count 308 x10^3/uL Sodium Level 140 mmol/L Potassium Level 4.5 mmol/L Chloride Level 103 mmol/L Carbon Dioxide Level 26 mmol/L Anion Gap 11 Blood Urea Nitrogen 15 mg/dL Creatinine 0.9 mg/dL Estimated GFR (Cockcroft-Gault) 89.0 BUN/Creatinine Ratio 17 Glucose Level 136 mg/dL Calcium Level 8.0 mg/dL Total Bilirubin 0.4 mg/dL Aspartate Amino Transf (AST/SGOT) 26 U/L Alanine Aminotransferase (ALT/SGPT) 33 U/L Alkaline Phosphatase 105 U/L Total Protein 6.6 g/dL Albumin 3.3 g/dL Albumin/Globulin Ratio 1.0 Triglycerides Level 209 mg/dL Cholesterol Level 169 mg/dL LDL Cholesterol, Calculated 93 mg/dL VLDL Cholesterol, Calculated 42 mg/dL Non-HDL Cholesterol Calculated 135 mg/dL HDL Cholesterol 34 mg/dL Cholesterol/HDL Ratio 5.0 Lipase 189 U/L Thyroid Stimulating Hormone (TSH) 1.533 uIU/mL Imaging: CT A/P FINDINGS: Evaluation of the lower thorax demonstrates minimal emphysema. There is minimal posterior dependent and basilar atelectasis. There is no infiltrate or pleural effusion. There is hepatic steatosis. No focal hepatic lesion is seen. There is fatty sparing along the gallbladder fossa. The gallbladder, pancreas, spleen and adrenal glands are unremarkable. The kidneys are unremarkable. There is mild urinary bladder wall thickening likely due to relative under distention. There is no appendicitis. There is no bowel obstruction. There is no abnormal bowel wall thickening. There is a normal caliber aorta. There is a stable nonspecific left retroperitoneal lymph node at the level of the superior mesenteric artery. The greater than two-year course of stability favors benignity. There is no suspicious lymph node. There are degenerative changes involving the spine and hips. There is no acute osseous finding or suspicious osseous lesion. IMPRESSION: 1. Hepatic steatosis. 2. No convincing acute abdominal or pelvic finding. Specifically, no CT evidence of pancreatitis. PE: GEN: NAD LUNGS: CTAB HEART: RRR ABD: NABS, S/ND/NT NEURO/PSYCH: A & O 3 A/P: Substernal/epigastric discomfort - resolved Mild lipase elevation - resolved, normal pancreas per CT report Acid reflux CRC screen - none CAD, tobacco/alcohol abuse, anxiety COVID negative -- He wants to discharge - okay per GI - defer to cardiology/primary. Left Rx for pantoprazole 40mg QD w/ nurse. We'll contact to schedule outpt EGD and colonoscopy - he might wait til next year (though encouraged to schedule sooner). Counseled on smoking and alcohol cessation, offered help w/ stress/anxiety (but he declines for now). Justicifation of Admission Dx: Justifications for Admission: Justification of Admission Dx: Yes [place]: Acute NSTEMI STEVEN KAUFMAN Nov 08, 2021 09:50
[2021-11-08 10:47] VITALS: BP 121/60
--- NOTE | 2021-11-08 11:18 | NUR ---
SS following for discharge planning. SS reviewed pt chart and discussed with pt RN. Pt is from home with spouse and is currently on room air. GI and Cardiology following. Discharge plan is currently to home when medically ready for discharge. SS will continue to follow for discharge planning.
--- NOTE | 2021-11-08 12:08 | DISCH ---
DISCHARGE INSTRUCTIONS Condition on Discharge Condition on Discharge: Stable Activity After Discharge Activity Instructions for Disc: Activity as tolerated Weight Bearing Status after Di: As tolerated Diet after Discharge Diet after Discharge: Cardiac Diet Texture: Regular Liquid Texture: Thin Liquid Swallowing Supervision: None needed Checks after Discharge Checks after discharge: Check blood press - daily, Check your Temp as needed, Weigh Yourself Daily Follow-Up Follow up with: Dr. Bella (GI) for EGD/colonoscopy [phone] Follow Up With: PCP in 1 week Treatment/Equipment after DC Adaptive Equipment Issued: None GONZALES GEORGES MD Nov 08, 2021 12:08
--- NOTE | 2021-11-08 14:12 | NUR ---
Discharge Note: ELIDA BURGESS [address] [place] [address] Discharge instructions and discharge home medications reviewed with Patient and a copy given. All questions have been answered and understanding verbalized. The following instructions and handouts were given: discharge instructions, follow ups, med list, RX for pantoprazole & inhalers. Discontinued lines and drains: Peripheral IV intact. Patient discharged to Home or Self Care with Spouse via Ambulated at 1412.
--- NOTE | 2021-11-08 15:00 | PDOC ---
PULMONARY PROGRESS NOTES DATE: 11/08/21 TIME: 14:59 Vitals Vital Signs Date Time Temp Pulse Resp B/P (MAP) Pulse Ox O2 Delivery O2 Flow Rate FiO2 11/08/21 10:47 98.2 64 20 121/60 (80) 96 Room Air 98.2 Lungs: Clear Labs Laboratory Tests Test 11/07/21 10:08 11/07/21 11:45 11/07/21 12:35 11/07/21 15:35 White Blood Count 10.8 x10^3/uL (4.0-11.0) Red Blood Count 4.91 x10^6/uL (4.30-5.70) Hemoglobin 14.6 g/dL (13.0-17.5) Hematocrit 43.9 % (39.0-53.0) Mean Corpuscular Volume 89 fL (79-100) Mean Corpuscular Hemoglobin 30 pg (25-35) Mean Corpuscular Hemoglobin Concent 33 g/dL (31-37) Red Cell Distribution Width 12.8 % (11.5-14.5) Platelet Count 326 x10^3/uL (140-400) Neutrophils (%) (Auto) 59 % (31-73) Lymphocytes (%) (Auto) 27 % (24-48) Monocytes (%) (Auto) 7 % (0-9) Eosinophils (%) (Auto) 6 % (0-3) Basophils (%) (Auto) 1 % (0-3) Neutrophils # (Auto) 6.4 x10^3/uL (1.8-7.7) Lymphocytes # (Auto) 2.9 x10^3/uL (1.0-4.8) Monocytes # (Auto) 0.7 x10^3/uL (0.0-1.1) Eosinophils # (Auto) 0.6 x10^3/uL (0.0-0.7) Basophils # (Auto) 0.1 x10^3/uL (0.0-0.2) Sodium Level 138 mmol/L (136-145) Potassium Level 4.1 mmol/L (3.5-5.1) Chloride Level 102 mmol/L (98-107) Carbon Dioxide Level 24 mmol/L (21-32) Anion Gap 12 (6-14) Blood Urea Nitrogen 19 mg/dL (8-26) Creatinine 1.0 mg/dL (0.7-1.3) Estimated GFR (Cockcroft-Gault) 78.8 BUN/Creatinine Ratio 19 (6-20) Glucose Level 204 mg/dL (70-99) Calcium Level 8.4 mg/dL (8.5-10.1) Magnesium Level 2.1 mg/dL (1.8-2.4) Total Bilirubin 0.4 mg/dL (0.2-1.0) Aspartate Amino Transf (AST/SGOT) 14 U/L (15-37) Alanine Aminotransferase (ALT/SGPT) 27 U/L (16-63) Alkaline Phosphatase 104 U/L (46-116) Troponin I High Sensitivity 8 ng/L (4-75) 8 ng/L (4-75) 8 ng/L (4-75) JT-Vfi-B-Type Natriuretic Peptide 18 pg/mL (0-124) Total Protein 7.4 g/dL (6.4-8.2) Albumin 3.5 g/dL (3.4-5.0) Albumin/Globulin Ratio 0.9 (1.0-1.7) Lipase 503 U/L (73-393) Coronavirus (COVID-19)(PCR) Not detected (NOT DETECTD) SARS-CoV-2 Antigen (Rapid) Negative (NEGATIVE) Prothrombin Time 11.9 SEC (11.7-14.0) Prothromb Time International Ratio 0.9 (0.8-1.1) Test 11/08/21 03:05 White Blood Count 9.5 x10^3/uL (4.0-11.0) Red Blood Count 4.89 x10^6/uL (4.30-5.70) Hemoglobin 14.7 g/dL (13.0-17.5) Hematocrit 43.5 % (39.0-53.0) Mean Corpuscular Volume 89 fL (79-100) Mean Corpuscular Hemoglobin 30 pg (25-35) Mean Corpuscular Hemoglobin Concent 34 g/dL (31-37) Red Cell Distribution Width 12.8 % (11.5-14.5) Platelet Count 308 x10^3/uL (140-400) Sodium Level 140 mmol/L (136-145) Potassium Level 4.5 mmol/L (3.5-5.1) Chloride Level 103 mmol/L (98-107) Carbon Dioxide Level 26 mmol/L (21-32) Anion Gap 11 (6-14) Blood Urea Nitrogen 15 mg/dL (8-26) Creatinine 0.9 mg/dL (0.7-1.3) Estimated GFR (Cockcroft-Gault) 89.0 BUN/Creatinine Ratio 17 (6-20) Glucose Level 136 mg/dL (70-99) Calcium Level 8.0 mg/dL (8.5-10.1) Total Bilirubin 0.4 mg/dL (0.2-1.0) Aspartate Amino Transf (AST/SGOT) 26 U/L (15-37) Alanine Aminotransferase (ALT/SGPT) 33 U/L (16-63) Alkaline Phosphatase 105 U/L (46-116) Total Protein 6.6 g/dL (6.4-8.2) Albumin 3.3 g/dL (3.4-5.0) Albumin/Globulin Ratio 1.0 (1.0-1.7) Triglycerides Level 209 mg/dL (0-150) Cholesterol Level 169 mg/dL (0-200) LDL Cholesterol, Calculated 93 mg/dL (0-100) VLDL Cholesterol, Calculated 42 mg/dL (0-40) Non-HDL Cholesterol Calculated 135 mg/dL (0-129) HDL Cholesterol 34 mg/dL (40-60) Cholesterol/HDL Ratio 5.0 Lipase 189 U/L (73-393) Thyroid Stimulating Hormone (TSH) 1.533 uIU/mL (0.358-3.74) Laboratory Tests Test 11/07/21 15:35 11/08/21 03:05 Prothrombin Time 11.9 SEC (11.7-14.0) Prothromb Time International Ratio 0.9 (0.8-1.1) Troponin I High Sensitivity 8 ng/L (4-75) White Blood Count 9.5 x10^3/uL (4.0-11.0) Red Blood Count 4.89 x10^6/uL (4.30-5.70) Hemoglobin 14.7 g/dL (13.0-17.5) Hematocrit 43.5 % (39.0-53.0) Mean Corpuscular Volume 89 fL (79-100) Mean Corpuscular Hemoglobin 30 pg (25-35) Mean Corpuscular Hemoglobin Concent 34 g/dL (31-37) Red Cell Distribution Width 12.8 % (11.5-14.5) Platelet Count 308 x10^3/uL (140-400) Sodium Level 140 mmol/L (136-145) Potassium Level 4.5 mmol/L (3.5-5.1) Chloride Level 103 mmol/L (98-107) Carbon Dioxide Level 26 mmol/L (21-32) Anion Gap 11 (6-14) Blood Urea Nitrogen 15 mg/dL (8-26) Creatinine 0.9 mg/dL (0.7-1.3) Estimated GFR (Cockcroft-Gault) 89.0 BUN/Creatinine Ratio 17 (6-20) Glucose Level 136 mg/dL (70-99) Calcium Level 8.0 mg/dL (8.5-10.1) Total Bilirubin 0.4 mg/dL (0.2-1.0) Aspartate Amino Transf (AST/SGOT) 26 U/L (15-37) Alanine Aminotransferase (ALT/SGPT) 33 U/L (16-63) Alkaline Phosphatase 105 U/L (46-116) Total Protein 6.6 g/dL (6.4-8.2) Albumin 3.3 g/dL (3.4-5.0) Albumin/Globulin Ratio 1.0 (1.0-1.7) Triglycerides Level 209 mg/dL (0-150) Cholesterol Level 169 mg/dL (0-200) LDL Cholesterol, Calculated 93 mg/dL (0-100) VLDL Cholesterol, Calculated 42 mg/dL (0-40) Non-HDL Cholesterol Calculated 135 mg/dL (0-129) HDL Cholesterol 34 mg/dL (40-60) Cholesterol/HDL Ratio 5.0 Lipase 189 U/L (73-393) Thyroid Stimulating Hormone (TSH) 1.533 uIU/mL (0.358-3.74) Medications Active Scripts Medications Dose Route/Sig Max Daily Dose Days Date Category Tylenol (Acetaminophen) 325 Mg Tablet 1-2 Tab PO PRN Q4-6HRS PRN 11/07/21 Reported Atorvastatin Calcium 40 Mg Tablet 1 Tab PO DAILY 11/07/21 Reported Toprol XL (Metoprolol Succinate) 50 Mg Tab.er.24h 50 Mg PO DAILY 11/07/21 Reported Lisinopril 20 Mg Tablet 1 Tab PO DAILY 11/07/21 Reported Aspirin Ec (Aspirin) 81 Mg Tablet. 81 Mg PO DAILYWBKFT 90 06/13/20 Rx Impression . Full consult dictated Discharge home Obtain CT chest in 8 weeks Added Spiriva Continue CPAP for obstructive sleep apnea GIA LEDBETTER MD Nov 08, 2021 15:00
--- NOTE | 2021-11-08 19:14 | CARD ---
MR#: [id number] Date of Study: 11/08/2021 Ordering Physician: ADONIS CARBALLO, Referring Physician: ADONIS CARBALLO, Tech: Jennifer Dalalexiacalvin, [facility] APPROVED REPORT EXAM: Two-dimensional and M-mode echocardiogram with Doppler and color Doppler. Other Information Quality : AverageHR: 59bpm INDICATION Cardiac Disease: CAD Chest Pain RISK FACTORS Hypertension Hyperlipidemia Diabetes 2D DIMENSIONS Left Atrium(2D)3.8 (1.6-4.0cm)IVSd1.1 (0.7-1.1cm) Aortic Root(2D)2.8 (2.0-3.7cm)LVDd5.2 (3.9-5.9cm) LVOT Diameter2.1 (1.8-2.4cm)PWd1.1 (0.7-1.1cm) LVDs2.9 (2.5-4.0cm)FS (%) 43.9 % SV96.0 ml Aortic Valve AoV Peak Alberto.121.6cm/sAoV VTI28.8cm AO Peak GR.5.9mmHgLVOT VTI 24.92cm AO Mean GR.3mmHg Mitral Valve MV E Kxzgilqp114.3cm/sMV E Peak Gr.5mmHg MV DECEL [id number] A Kjnydfse26.1cm/s MV E Mean Gr.1mmHgE/A Ratio1.6 TDI Lateral E' P. V9.98cm/sMedial E' P. V8.24cm/s E/Lateral E'10.1E/Medial E'12.2 Tricuspid Valve TR P. Wzxviprs066ux/sRAP BCIOTOBK8pxKt TR Peak Gr.45kxFkGMGZ53dvTh Pulmonary Vein S1 Qggqqovx26.2cm/sS2 Oiwgxxcg35.19cm/s D2 Dbplezha34.2cm/sPVa ynkzrpyq473hkeo LEFT VENTRICLE The left ventricle is normal size. There is mild concentric left ventricular hypertrophy. The left ve ntricular systolic function is normal and the ejection fraction is within normal range. The Ejection Fraction is 55-60%. There is normal LV segmental wall motion. Transmitral Doppler flow pattern is Gra de II-pseudonormal filling dynamics. RIGHT VENTRICLE The right ventricle is borderline dilated. There is normal right ventricular wall thickness. The righ t ventricular systolic function is normal. ATRIA The left atrium size is normal. The right atrium is borderline dilated. The interatrial septum is int act with no evidence for an atrial septal defect or patent foramen ovale as noted on 2-D or Doppler i maging. AORTIC VALVE The aortic valve is normal in structure and function. Doppler and Color Flow revealed no significant aortic regurgitation. There is no significant aortic valvular stenosis. Calculated aortic valve area is 2.55 cm2 with maximum pressure gradient of 10 mmHg and mean pressure gradient of 6 mmHg. MITRAL VALVE The mitral valve is normal in structure and function. There is no evidence of mitral valve prolapse. There is no mitral valve stenosis. Doppler and Color Flow revealed no mitral valve regurgitation note d. TRICUSPID VALVE The tricuspid valve is normal in structure and function. Doppler and Color Flow revealed trace tricus pid regurgitation with an estimated PAP of 43 mmHg. There is no tricuspid valve stenosis. PULMONIC VALVE The pulmonic valve is not well visualized. Doppler and Color Flow revealed trace pulmonic valvular re gurgitation. GREAT VESSELS The aortic root is normal in size. The ascending aorta is normal in size. The IVC is normal in size a nd collapses >50% with inspiration. PERICARDIAL EFFUSION There is no evidence of significant pericardial effusion. Critical Notification Critical Value: No <Conclusion> The left ventricle is normal size. The left ventricular systolic function is normal and the ejection fraction is within normal range. The Ejection Fraction is 55-60%. There is mild concentric left ventricular hypertrophy. Doppler and Color Flow revealed no significant aortic regurgitation. There is no significant aortic valvular stenosis. Doppler and Color Flow revealed no mitral valve regurgitation noted. Doppler and Color Flow revealed trace tricuspid regurgitation with an estimated PAP of 43 mmHg. Signed by : Phil Johnson MD Electronically Approved : 11/08/2021 19:13:38
--- NOTE | 2021-11-09 03:01 | CONS ---
DATE OF CONSULTATION: 11/08/2021 ATTENDING PHYSICIAN: Zacarias Ortez DO REASON FOR CONSULTATION: The patient is seen in pulmonary consultation at the request of Dr. Davis for increasing shortness of breath, COPD. HISTORY OF PRESENT ILLNESS: The patient is a 51-year-old with prior history of coronary artery disease, hypertension, hyperlipidemia, presented with chest pain. He was evaluated by Cardiology. I was asked to see him in consultation prior to his discharge. The patient smokes. He was using albuterol on a p.r.n. basis. He drives a truck. He has been smoking for more than 30 years. He also had an abnormal x-ray, which I was consulted for revealing some basilar infiltrates. According to the patient, he might have had Omicron version of COVID some approximately 2-3 weeks ago, he had classical symptoms of nasal congestion, sore throat, increasing shortness of breath. At that time, he did not seek medical attention. Everyone else in the family and some coworkers had COVID. PAST MEDICAL HISTORY: Coronary artery disease, hypertension, hyperlipidemia, tobacco dependent, possible COPD, gastroesophageal reflux. PAST SURGICAL HISTORY: Previous PCI to the left circumflex, back surgery. FAMILY HISTORY: Heart disease, hyperlipidemia. SOCIAL HISTORY: He smokes 1 pack of cigarettes a day. He drinks on a daily basis. REVIEW OF SYSTEMS: As indicated above, otherwise 10-point system was reviewed and negative. FAMILY HISTORY: Noncontributory. CURRENT MEDICATIONS: List was reviewed. PHYSICAL EXAMINATION: VITAL SIGNS: Stable. O2 saturation greater than 92%, on room air 96%. HEENT: Eyes: The sclerae were nonicteric. NECK: Jugular venous distention was not elevated. No lymphadenopathy. CHEST: Full expansion. LUNGS: Poor air flow, no wheezes. CARDIOVASCULAR: Regular rate and rhythm with S1, S2, no S3. ABDOMEN: Soft, obese. EXTREMITIES: No clubbing, cyanosis or edema. LABORATORY DATA: Reviewed. SARS-CoV-2 testing was negative. Chest x-ray as indicated above. IMPRESSION: 1. Abnormal x-ray, possibly residual COVID-19 presumptive diagnosis. 2. Chronic obstructive pulmonary disease with mild acute exacerbation. 3. Tobacco dependent. 4. Coronary artery disease with previous stent placement. 5. Alcohol abuse. 6. Morbid obesity. 7. Obstructive sleep apnea, continue CPAP at home. PLAN: 1. The patient is okay to discharge home and follow up with me in 8 weeks. At that time, I will obtain a CT chest. 2. The patient is instructed on the importance of discontinued tobacco and alcohol. 3. Continue albuterol. 4. I added Spiriva to his regimen 1 inhalation daily. 5. We spoke about optimizing sleep, avoiding processed foods and caffaeinated beverages after 10 a.m. I do appreciate the privilege in sharing in the patient's care. CAT/GAVIN DR: Fernando TID: [id number]
--- NOTE | 2021-11-11 17:07 | PDOC3 ---
[facility]-Discharge Summary Date of Admission: Date of Admission: Nov 07, 2021 Date of Discharge: Date of Discharge: Nov 08, 2021 Discharge Diagnosis: Discharge Diagnosis: 1. Chest pain, atypical; AMI ruled out. ? GERD 2. CAD s/p PCI/SAMIR to the LCx 05/2020. Echo 06/18 with preserved LV systolic function 3. Hypertension; controlled 4. Hyperlipidemia; statin 5. Diabetes, II 6. Elevated lipase; CT abdomen pelvis without acute findinfs 7. ETOH misuse 8. Tobaccoism; discussed/encouraged cessation 9. Abnormal CXR; bilateral infiltrates noted. ? PNA Consults: Consults: Per cardiology Recommendations Secondary prevention measures Echo pending Will arranged outpatient ischemic evaluation Supportive care Okay to discharge from a CV standpoint and follow up in our office with Dr. Yanez Per GI He wants to discharge - okay per GI - defer to cardiology/primary. Left Rx for pantoprazole 40mg QD w/ nurse. We'll contact to schedule outpt EGD and colonoscopy - he might wait til next year (though encouraged to schedule sooner). Counseled on smoking and alcohol cessation, offered help w/ stress/anxiety (but he declines for now). Hospital Course: Hospital Course: 51-year-old male who smokes 2 packs a day and drinks 15 beers a day. Basically, he presented with chest pain. He has known previous coronary artery disease with 1 stent. While in the ER, we noticed that his troponins were negative, but his lipase is high. It appears he has pancreatitis. By day of discharge, patient's chest pain essentially resolved completely. Afebrile and vital signs are stable. See cardiology and GI recommendations above. Rest of hospital course was uneventful Disposition: Disposition/Orders: D/C to Home Activity: Activity: Resume previous activity Diet: Diet: Cardiac Medications: Home Meds Active Scripts Aspirin (ASPIRIN EC) 81 Mg Tablet., 81 MG PO DAILYWBKFT for cad for 90 Days, #90 TAB.SR Prov:DWIGHT DOSHI K III DO 06/13/20 Reported Medications Acetaminophen (TYLENOL) 325 Mg Tablet, 1-2 TAB PO PRN Q4-6HRS PRN for MILD PAIN / TEMP > 100.3'F, #30 TAB 11/07/21 Atorvastatin Calcium (ATORVASTATIN CALCIUM) 40 Mg Tablet, 1 TAB PO DAILY for , #30 TAB 5 Refills 11/07/21 Metoprolol Succinate (Toprol XL) 50 Mg Tab.er.24h, 50 MG PO DAILY for FOR HYPERTENSION, TAB.SR 11/07/21 Lisinopril (LISINOPRIL) 20 Mg Tablet, 1 TAB PO DAILY for htn, #30 TAB 5 Refills 11/07/21 Scheduled Aspirin (Aspirin Ec), 81 MG PO DAILYWBKFT Atorvastatin Calcium (Atorvastatin Calcium), 1 TAB PO DAILY, (Reported) Lisinopril (Lisinopril), 1 TAB PO DAILY, (Reported) Metoprolol Succinate (Toprol XL), 50 MG PO DAILY, (Reported) Scheduled PRN Acetaminophen (Tylenol), 1-2 TAB PO PRN Q4-6HRS PRN for MILD PAIN / TEMP > 100.3'F, (Reported) Total Time: Total Time: Total time spent was 36 minutes in preparing scripts, discharge planning with SWI and RN and preparing this discharge summary Patient seen and examined on day of discharge. No acute abnormal findings. Justicifation of Admission Dx: Justifications for Admission: Justification of Admission Dx: Yes [place]: Acute NSTEMI GONZALES GEORGES MD Nov 11, 2021 17:07
== END 2021-11-08 14:15 | disposition home or self-care (01) | DRG 438 ==
LOC: ER 09:47 → ED HOLD 13:03 → 6 SOUTH 14:23 → ED HOLD 14:54 → 6 SOUTH 18:00
PROVIDERS: ADMIT Internal Medicine; ATTEND Internal Medicine
DX: K85.90 Acute pancreatitis without necrosis or infection, unspecified (principal); J18.9 Pneumonia, unspecified organism; J44.0 Chronic obstructive pulmonary disease with (acute) lower respiratory infection; J44.1 Chronic obstructive pulmonary disease with (acute) exacerbation; J98.11 Atelectasis; E11.9 Type 2 diabetes mellitus without complications; E66.01 Morbid (severe) obesity due to excess calories; E78.5 Hyperlipidemia, unspecified; F17.210 Nicotine dependence, cigarettes, uncomplicated; F41.9 Anxiety disorder, unspecified; G47.33 Obstructive sleep apnea (adult) (pediatric); I10 Essential (primary) hypertension; I25.10 Atherosclerotic heart disease of native coronary artery without angina pectoris; I25.2 Old myocardial infarction; K21.9 Gastro-esophageal reflux disease without esophagitis; K76.0 Fatty (change of) liver, not elsewhere classified; Y99.0 Civilian activity done for income or pay; Z20.822 Contact with and (suspected) exposure to COVID-19; Z79.01 Long term (current) use of anticoagulants; Z80.1 Family history of malignant neoplasm of trachea, bronchus and lung; Z82.49 Family history of ischemic heart disease and other diseases of the circulatory system; Z83.3 Family history of diabetes mellitus; Z95.5 Presence of coronary angioplasty implant and graft; F10.20 Alcohol dependence, uncomplicated; M19.90 Unspecified osteoarthritis, unspecified site; Z71.6 Tobacco abuse counseling
CPT/HCPCS: 36415; 71045; 74177; 80053; 80061; 83690; 83735; 83880; 84443; 84484; 85025; 85027; 85610; 87426; 93005; 93306; 94660; 99406; Q9966; Q9967; U0003; 99285-25; C8929; G0378